=== PATIENT | female | born 1965 | race Caucasian/White ===

== ENCOUNTER 2016-03-22 08:59 | Day surgery (SDC) | payer MEDICAID ==
[2016-03-20 16:05] VITALS: BMI 20.5
[~2016-03-22 08:59] MED LIST: LACTATED RINGERS 1,000 ML IV SCH
[2016-03-22 09:15] VITALS: RESP 16; TEMP 98.7
[2016-03-22] MEDS ORDERED: LIDOCAINE 1% 20 ML VIAL (10MG/ML) FOR IV START INTRADERMA ONE (09:19)
[2016-03-22] MEDS ORDERED: fentaNYL (PF) 50 MCG/ML 2 ML AMP ONE (10:00)
[2016-03-22] MEDS ORDERED: MIDAZOLAM 2 MG/2 ML VIAL ONE (10:00)
[2016-03-22] MEDS ORDERED: IOHEXOL 180 MG/ML 1 ML ML ONE (10:00)
[2016-03-22] MEDS ORDERED: TRIAMCINOLONE ACETONIDE 40 MG/ML 1 ML VIAL ONE (10:00)
--- NOTE | 2016-03-22 10:27 | P.PCN ---
Date of Procedure: 03/22/16 Procedure(s) Performed: PREOP DIAGNOSIS: 1- Lumbar postlaminectomy syndrome POSTOP DIAGNOSIS:1- Lumbar postlaminectomy syndrome PROCEDURE: Caudal epidural steroid injection with epidurolysis and epidurogram under fluoroscopic guidance ANESTHESIA: Local with 1% lidocaine 3 ml ; IV sedation with Versed 2 mg and fentanyl 200 g EBL: Minimal. PROCEDURE INDICATION: The patient with post-laminectomy syndrome with low back pain and radiculopathy radiating down in both legs, here for a caudal epidural steroid injection with epidurolysis. PROCEDURE DESCRIPTION: The patient was seen and identified in the preoperative area. Risks, benefits, complications, and alternatives were discussed with the patient. The patient agreed to proceed with the procedure and signed the consent. IV was started, and vital signs were stable. Patient was taken to the OR and time out was completed. The patient was placed in the prone position on procedure table and a pillow was placed under the abdomen to reduce lumbar lordosis. The lumbosacral area was prepped and draped in the usual sterile fashion. Vital signs were closely monitored during the procedure. lateral view and the anterior-posterior plates of the sacrum were identified with infiltration of the area overlying the sacral hiatus with 1% lidocaine .A 17 gauge RK epidural needle was used to advance through the sacral hiatus into the caudal epidural space. Omnipaque 180 dye. 2cc was injected and the position of the needle was verified to be in the midline. A Racz catheter was introduced into the epidural space and was advanced towards the L5-S1 interspace under direct fluoroscopic guidance. Multiple passes were made with the catheter for lysis of epidural adhesions. Kenalog 80 mg with 3ml of preservative free Lidocaine 1% and 5 ml of preservative free normal saline was injected slowly. Additional spread was seen to L4 under fluoroscopy. The needle and the catheter were withdrawn intact. EPIDUROGRAM: Omnipaque 180 mg dye 2 ml was injected with spread of the dye into the caudal epidural space and with spread cutoff at L5 prior to epidurolysis. Post epidurolysis dye 2 ml was injected and spread was seen to L3- 4.There was further spread of the solution together with the dye above the L3 COMPLICATIONS: None. DISPOSITION / PLANS: The patient was placed in a supine position and transferred to the recovery area in a stable condition for observation and was discharged from the recovery room after meeting discharge criteria. Home discharge instructions given to the patient by the staff. The patient was reexamined prior to discharge. The patient will schedule a follow up in the clinic in 8 weeks. Patient given prescription refill for [place] 10/325 every 6 hours dispensed 120 mg refill, amitriptyline 50 mg one tablet by mouth daily at bedtime dispense 30 with one refill, and baclofen 10 mg every 8 hours dispensed 30 with one refill
[2016-03-22] MEDS ORDERED: KETOROLAC 30 MG/ML 1 ML VIAL IVP STA (10:29)
--- NOTE | 2016-03-22 10:41 | FL ---
EXAMINATION TYPE: FL guided pain mgmt statistic DATE OF EXAM: 03/22/2016 10:28 AM HISTORY: Flouroscopy time 4 seconds of fluoroscopy provided. IMPRESSION: 1. Fluoroscopy time.
[2016-03-22 10:44] VITALS: BP 122/78; PULSE 90
[2016-03-22] MEDS ORDERED: HYDROmorphone 1 MG/ML 1 ML SYRINGE IVP ONE (10:54)
[2016-03-22] MEDS ORDERED: IV FLUID CONTINUATION 1,000 ML IV ONE (11:09)
== END 2016-03-22 11:19 | disposition home or self-care (01) ==
LOC: ORPAIN 08:59
PROVIDERS: ATTEND Specialist
DX: M96.1 Postlaminectomy syndrome, not elsewhere classified (principal); Z88.5 Allergy status to narcotic agent; Z91.012 Allergy to eggs; Z91.011 Allergy to milk products
CPT/HCPCS: 62264; J2250; J3301; Q9965; J3010; J1170

== ENCOUNTER 2016-05-08 06:30 | Day surgery (SDC) | payer MEDICAID ==
[2016-05-08] MEDS ORDERED: LACTATED RINGERS 1,000 ML IV SCH (06:40)
[2016-05-08] MEDS ORDERED: LIDOCAINE 1% 20 ML VIAL (10MG/ML) FOR IV START INTRADERMA ONE (06:41)
[2016-05-08 06:45] VITALS: TEMP 98.5
[2016-05-08] MEDS ORDERED: TRIAMCINOLONE ACETONIDE 40 MG/ML 1 ML VIAL ONE (07:39)
[2016-05-08] MEDS ORDERED: IOHEXOL 180 MG/ML 1 ML ML ONE (07:39)
[2016-05-08] MEDS ORDERED: MIDAZOLAM 2 MG/2 ML VIAL ONE (07:39)
[2016-05-08] MEDS ORDERED: fentaNYL (PF) 50 MCG/ML 2 ML AMP ONE (07:39)
--- NOTE | 2016-05-08 08:04 | P.PCN ---
Date of Procedure: 05/08/16 Procedure(s) Performed: PREOP DIAGNOSIS: 1- Lumbar postlaminectomy syndrome POSTOP DIAGNOSIS:1- Lumbar postlaminectomy syndrome PROCEDURE: Caudal epidural steroid injection with epidurolysis and epidurogram under fluoroscopic guidance ANESTHESIA: Local with 1% lidocaine 3 ml ; IV sedation with Versed 2 mg and fentanyl 200 g EBL: Minimal. PROCEDURE INDICATION: The patient with post-laminectomy syndrome with low back pain and radiculopathy radiating down in both legs, here for a caudal epidural steroid injection with epidurolysis. PROCEDURE DESCRIPTION: The patient was seen and identified in the preoperative area. Risks, benefits, complications, and alternatives were discussed with the patient. The patient agreed to proceed with the procedure and signed the consent. IV was started, and vital signs were stable. Patient was taken to the OR and time out was completed. The patient was placed in the prone position on procedure table and a pillow was placed under the abdomen to reduce lumbar lordosis. The lumbosacral area was prepped and draped in the usual sterile fashion. Vital signs were closely monitored during the procedure. lateral view and the anterior-posterior plates of the sacrum were identified with infiltration of the area overlying the sacral hiatus with 1% lidocaine .A 17 gauge RK epidural needle was used to advance through the sacral hiatus into the caudal epidural space. Omnipaque 180 dye. 2cc was injected and the position of the needle was verified to be in the midline. A Racz catheter was introduced into the epidural space and was advanced towards the L5-S1 interspace under direct fluoroscopic guidance. Multiple passes were made with the catheter for lysis of epidural adhesions. Kenalog 80 mg with 3ml of preservative free Lidocaine 1% and 5 ml of preservative free normal saline was injected slowly. Additional spread was seen to L4 under fluoroscopy. The needle and the catheter were withdrawn intact. EPIDUROGRAM: Omnipaque 180 mg dye 2 ml was injected with spread of the dye into the caudal epidural space and with spread cutoff at L5 prior to epidurolysis. Post epidurolysis dye 2 ml was injected and spread was seen to L3- 4.There was further spread of the solution together with the dye above the L3 COMPLICATIONS: None. DISPOSITION / PLANS: The patient was placed in a supine position and transferred to the recovery area in a stable condition for observation and was discharged from the recovery room after meeting discharge criteria. Home discharge instructions given to the patient by the staff. The patient was reexamined prior to discharge. The patient will schedule a follow up in the clinic in 2-4 weeks. Patient also given prescription refill for [place] 10/325 one tablet by mouth every 6 hours dispense 120 and baclofen 10 mg every 8 hours when necessary dispensed 30 with 3 refills, and amitriptyline 50 mg daily at bedtime dispensed 30 with 3 refills
[2016-05-08] MEDS ORDERED: IV FLUID CONTINUATION 1,000 ML IV ONE (08:10)
[2016-05-08 08:12] VITALS: RESP 18
[2016-05-08 08:28] VITALS: BP 135/76; PULSE 83
--- NOTE | 2016-05-08 09:23 | FL ---
EXAMINATION TYPE: FL guided pain mgmt statistic DATE OF EXAM: 05/08/2016 8:08 AM HISTORY: Flouroscopy time 5 seconds of fluoroscopy provided. IMPRESSION: 1. Fluoroscopy time.
--- NOTE | 2016-05-10 10:50 | CDI ---
Pt Name: Debbi Menchaca CONFIDENTIAL MR#: [id number] Adm Date: 05/08/2016 6:30:00 AM Printed:05/10/2016 Physician Documentation Request Page 1 of 2 ICD-10-CM Ready Physicians Documentation Request Patient: Debbi Menchaca EPI: [id number] Account: [id number] Payer: [facility] Facility: [facility] Location: - Admit Date: 05/08/2016 6:30:00 AM Query Send By: Reina Narvaez Phone #: Ext. Communication Date: 05/10/2016 10:45:00 AM Clarification Outpatient By submitting this query, we are merely seeking further clarification of documentation to accurately reflect all conditions that you are monitoring, evaluating, treating or that extend the hospitalization or utilize additional resources of care. Please utilize your independent clinical judgment when addressing the question(s) below. Dear Doctor Kathia Chaidez, The patients Clinical Indicators include: see below Documentation Clarification OP The Procedure note states "IV sedation". Please clarify the type of sedation this patient received, such as: Moderate/conscious sedation Unconscious sedation General Anesthesia Other (please specify) This information is necessary for proper coding and billing purposes. Please document your findings as an addendum. Thank you. PLEASE DOCUMENT ANY ADDITIONAL DIAGNOSES AND/OR SPECIFICITY IN THE PROGRESS NOTES AND/OR DISCHARGE SUMMARY. Agreed & documented Unable to determine/unknown Disagree with the above request Need to discuss MTDD
--- NOTE | 2016-05-13 16:35 | P.PN ---
Progress Note - Text This addendum to the procedure note dictated on 05/08/2016, the procedure done under moderate/conscious sedation
== END 2016-05-08 08:49 | disposition home or self-care (01) ==
LOC: ORPAIN 06:30
PROVIDERS: ATTEND Specialist
DX: M96.1 Postlaminectomy syndrome, not elsewhere classified (principal); Z91.012 Allergy to eggs; Z91.040 Latex allergy status; Z88.5 Allergy status to narcotic agent; Z91.018 Allergy to other foods
CPT/HCPCS: 99152; 62264; J2250; J3301; Q9965; J3010

== ENCOUNTER 2016-06-05 06:40 | Day surgery (SDC) | payer MEDICAID ==
[2016-06-05 07:02] VITALS: RESP 18; TEMP 98.4
[2016-06-05] MEDS ORDERED: LACTATED RINGERS 1,000 ML IV SCH (07:02)
[2016-06-05] MEDS ORDERED: LIDOCAINE 1% 20 ML VIAL (10MG/ML) FOR IV START INTRADERMA ONE (07:09)
[2016-06-05] MEDS ORDERED: MIDAZOLAM 2 MG/2 ML VIAL ONE (07:13)
[2016-06-05] MEDS ORDERED: IOHEXOL 180 MG/ML 1 ML ML ONE (07:13)
[2016-06-05] MEDS ORDERED: fentaNYL (PF) 50 MCG/ML 2 ML AMP ONE (07:13)
[2016-06-05] MEDS ORDERED: TRIAMCINOLONE ACETONIDE 40 MG/ML 1 ML VIAL ONE (07:13)
--- NOTE | 2016-06-05 07:35 | P.PCN ---
Date of Procedure: 06/05/16 Procedure(s) Performed: PREOP DIAGNOSIS: 1- Lumbar postlaminectomy syndrome POSTOP DIAGNOSIS:1- Lumbar postlaminectomy syndrome PROCEDURE: Caudal epidural steroid injection with epidurolysis and epidurogram under fluoroscopic guidance ANESTHESIA: Local with 1% lidocaine 3 ml ; IV sedation with Versed 3 mg and fentanyl 150 g EBL: Minimal. PROCEDURE INDICATION: The patient with post-laminectomy syndrome with low back pain and radiculopathy radiating down in both legs, here for a caudal epidural steroid injection with epidurolysis. PROCEDURE DESCRIPTION: The patient was seen and identified in the preoperative area. Risks, benefits, complications, and alternatives were discussed with the patient. The patient agreed to proceed with the procedure and signed the consent. IV was started, and vital signs were stable. Patient was taken to the OR and time out was completed. The patient was placed in the prone position on procedure table and a pillow was placed under the abdomen to reduce lumbar lordosis. The lumbosacral area was prepped and draped in the usual sterile fashion. Vital signs were closely monitored during the procedure. lateral view and the anterior-posterior plates of the sacrum were identified with infiltration of the area overlying the sacral hiatus with 1% lidocaine .A 17 gauge RK epidural needle was used to advance through the sacral hiatus into the caudal epidural space. Omnipaque 180 dye. 2cc was injected and the position of the needle was verified to be in the midline. A Racz catheter was introduced into the epidural space and was advanced towards the L5-S1 interspace under direct fluoroscopic guidance. Multiple passes were made with the catheter for lysis of epidural adhesions. Kenalog 80 mg with 3ml of preservative free Lidocaine 1% and 5 ml of preservative free normal saline was injected slowly. Additional spread was seen to L4 under fluoroscopy. The needle and the catheter were withdrawn intact. EPIDUROGRAM: Omnipaque 180 mg dye 2 ml was injected with spread of the dye into the caudal epidural space and with spread cutoff at L5 prior to epidurolysis. Post epidurolysis dye 2 ml was injected and spread was seen to L4.There was further spread of the solution together with the dye above the L4 COMPLICATIONS: None. DISPOSITION / PLANS: The patient was placed in a supine position and transferred to the recovery area in a stable condition for observation and was discharged from the recovery room after meeting discharge criteria. Home discharge instructions given to the patient by the staff. The patient was reexamined prior to discharge. The patient will schedule a follow up in the clinic in 4-6 weeks.
[2016-06-05] MEDS ORDERED: HYDROmorphone 1 MG/ML 1 ML SYRINGE IVP ONE ×2 (08:30→08:32)
--- NOTE | 2016-06-05 08:39 | FL ---
EXAMINATION TYPE: FL guided pain mgmt statistic DATE OF EXAM: 06/05/2016 7:42 AM HISTORY: Flouroscopy time 4 seconds of fluoroscopy provided. IMPRESSION: 1. Fluoroscopy time.
[2016-06-05 08:41] VITALS: BP 108/63; PULSE 90
[2016-06-05] MEDS ORDERED: IV FLUID CONTINUATION 1,000 ML IV ONE (08:43)
== END 2016-06-05 09:06 | disposition home or self-care (01) ==
LOC: ORPAIN 06:40
PROVIDERS: ATTEND Specialist
DX: M96.1 Postlaminectomy syndrome, not elsewhere classified (principal); M54.16 Radiculopathy, lumbar region; F41.9 Anxiety disorder, unspecified; F31.9 Bipolar disorder, unspecified; K21.9 Gastro-esophageal reflux disease without esophagitis; Z88.5 Allergy status to narcotic agent; Z91.011 Allergy to milk products; Z91.012 Allergy to eggs; Z88.8 Allergy status to other drugs, medicaments and biological substances
CPT/HCPCS: 62264; 99152; J2250; J3301; Q9965; J3010; J1170

== ENCOUNTER → 2016-07-31 | Outpatient (CLI) | payer MEDICAID ==
[2016-07-31 12:12] VITALS: BP 155/75; PULSE 102; RESP 18; TEMP 98.8
--- NOTE | 2016-07-31 12:29 | P.PN ---
Progress Note - Text Patient returns for followup for chronic back pain with radiation to RLE down to toes, s/p four back surgeries. Patient recently underwent caudal RAYNA with lysis x3 with relief for 4-6 weeks from each. Patient continues on [place], Elavil, and baclofen medications for pain with good relief. Patient denies adverse drug effects from medications. Today, pt denies new-onset weakness, bowel/bladder incontinence, or any other signs or symptoms of cauda equina syndrome. There are no signs of acute intoxication, and no indications of medication diversion or overuse. In addition to above, 13-point review of systems is also negative for chest pain , shortness of breath, changes in vision, changes in hearing, new onset weakness , abdominal pain, diarrhea, extreme fatigue, malaise, fever, skin changes, homicidal or suicidal ideation, or bowel or bladder incontinence. Vital Signs: Reviewed in EMR Gen: WDWN, AAOx3, NAD HEENT: NCAT, EOMI, hearing grossly normal Pulm: resp unlabored Abd: soft, NT, ND Neck: supple, trachea midline ROM in flexion lumbar spine: reduced ROM in extension lumbar spine: reduced Lumbar paravertebral tenderness: ++ Facet loading: ++ SI joint tenderness: + R side > L side Carlos's test: + R side >> L side Straight leg raise: ++ R side at 20 degrees Lower extremity: decreased strength due to pain Neuro: CN II-XII grossly intact, muscle strength lower extremities PRESERVED Imaging: Reviewed in EMR Assessment: 1. PLPS lumbar 2. lumbar radiculopathy 3. sacroiliitis Plan: 1. Explanation: Opioid and psychological risk scores were reviewed. Diagnoses , prognoses, and multiple treatment options including but not limited to physical therapy, interventional therapies, adjuvant medical therapies, narcotic medication therapies, and surgery were discussed with the patient and all questions were answered to the patient's satisfaction. 2. Opioid agreement: Patient has previously signed narcotic agreement, and was orally counseled to not overuse, abuse, divert, or cell medications, and to take them as prescribed by only 1 healthcare provider. The patient was also counseled to store opioid medications in a safe and preferably locked location. Patient was also counseled against driving while using narcotic medications and also to not use alcohol or any illicit or recreational drugs. The patient verbalized understanding that lack of compliance with any of the above and likely result in failure to renew narcotic prescriptions, possible discharge from the clinic, and possible legal ramifications thereafter if indicated. 3. Counseling: The patient was counseled extensively on SMOKING CESSATION, BODY MASS INDEX, EXERCISE. Specifically, the patient was instructed regarding the importance of smoking cessation, obesity, and exercise in the context of both chronic pain and overall health. 4. Procedures: repeat caudal RAYNA with epidurolysis in 6 weeks 5. Consultations: None 6. Investigations: None 7. Medications: [place] 10/325 decreased to #105 for next month, then #90 the month after (told patient we will likely keep her at #90 dose after) 8. Disposition: f/u for procedure as scheduled PQRS measures: 1-Patient's medications are documented in the chart. 2-Tobacco use is positive, counseling given 3-Patient has not had a pneumococcal vaccine. 4-Advanced care planning discussed, patient unable to give. 5-Opioid contract signed with the patient. 6-Pain positive, follow-up visit or procedure scheduled 7-Patient's blood pressure measured and documented, and patient will follow up with the primary care due to hypertension. 8-Patient's weight was measured, and body mass index within normal limits. 9-Patient WAS NOT identified as an unhealthy alcohol user.
== END ==
LOC: PNWHC3 11:52
PROVIDERS: ATTEND Anesthesiology
DX: M54.16 Radiculopathy, lumbar region (principal); M46.1 Sacroiliitis, not elsewhere classified; G97.1 Other reaction to spinal and lumbar puncture; Z79.891 Long term (current) use of opiate analgesic
CPT/HCPCS: 99211

== ENCOUNTER 2016-09-11 08:04 | Day surgery (SDC) | payer MEDICAID ==
[2016-09-05 15:38] VITALS: BMI 18.8
[2016-09-11 08:24] VITALS: RESP 16; TEMP 98.2
[2016-09-11] MEDS ORDERED: LACTATED RINGERS 1,000 ML IV ONE (08:24)
[2016-09-11] MEDS ORDERED: LIDOCAINE 1% 20 ML VIAL (10MG/ML) FOR IV START INTRADERMA ONE (08:24)
[2016-09-11] MEDS ORDERED: LACTATED RINGERS 1,000 ML IV SCH (08:45)
[2016-09-11] MEDS ORDERED: IV FLUID CONTINUATION 1,000 ML IV ONE (09:25)
--- NOTE | 2016-09-11 09:30 | FL ---
EXAMINATION TYPE: FL guided pain mgmt statistic DATE OF EXAM: 09/11/2016 HISTORY: Pain caudal epi w/lysis. Dr. Garcia. 15 sec fluoro. 4 images saved.
[2016-09-11] MEDS ORDERED: KETOROLAC 30 MG/ML 1 ML VIAL IVP ONE (09:33)
[2016-09-11] MEDS ORDERED: HYDROmorphone 1 MG/ML 1 ML SYRINGE IVP STA (09:52)
[2016-09-11] MEDS ORDERED: HYDROmorphone 1 MG/ML 1 ML SYRINGE IVP ONE (09:53)
[2016-09-11 10:08] VITALS: BP 102/66; PULSE 74
--- NOTE | 2016-09-11 10:21 | P.PCN ---
Date of Procedure: 09/11/16 Preoperative Diagnosis: Postoperative Diagnosis: Procedure(s) Performed: Implants: Surgeon: Dayne Garcia Pathology: none sent Condition: stable Disposition: PACU Indications for Procedure: Operative Findings: Description of Procedure: PREOP DIAGNOSIS: Lumbar postlaminectomy syndrome POSTOP DIAGNOSIS: Lumbar postlaminectomy syndrome PROCEDURE: Caudal epidural steroid injection with epidurolysis and epidurogram under fluoroscopic guidance ANESTHESIA: Local with 1% lidocaine; IV sedation EBL: Minimal. PROCEDURE INDICATION: This is a 50-year-old patient with lumbar post- laminectomy syndrome with low back pain and radiculopathy radiating down her right leg, here for a caudal epidural steroid injection with epidurolysis. Patient does not take any blood thinning medications. PROCEDURE DESCRIPTION: The patient was seen and identified in the preoperative area. Risks, benefits, complications, and alternatives were discussed with the patient (including but not limited to incomplete pain relief, bleeding, infection, nerve damage, and allergies to medications), the patient agreed to proceed with the procedure and signed the consent after all questions were answered. Patient was taken to the OR and time out was completed to verify proper patient , position, laterality of pain, and allergies. Pt was placed in the prone position and a pillow was placed under the abdomen to reduce lumbar lordosis. The lumbosacral area was prepped and draped in the usual sterile fashion. Critical pause was taken. Vital signs were closely monitored during the procedure. Fluoroscopic camera was placed in the lateral view and the anterior-posterior plates of the sacrum were identified with infiltration of the area overlying the sacral hiatus with 1% lidocaine .A 16 gauge RK epidural needle was used to advance through the sacral hiatus into the caudal epidural space. Omnipaque 300 dye 2cc was injected and the position of the needle was verified to be in the midline. A Racz catheter was introduced into the epidural space and was advanced towards the L5-S1 interspace on the right side (area of greater pain) under direct fluoroscopic guidance. Multiple passes were made with the catheter for lysis of epidural adhesions. Decadron 20 with 4ml of preservative free Lidocaine 1% and 5 ml of preservative free normal saline was injected slowly. Additional spread was seen to top of L5 and up to L4 under fluoroscopy. The needle and the catheter were withdrawn intact. EPIDUROGRAM: Omnipaque 300 dye 2 ml was injected with spread of the dye into the caudal epidural space and with spread cutoff at S1 prior to epidurolysis. Post epidurolysis dye 2 ml was injected and spread was seen to L5. There was further spread of the solution together with the dye above the L5 level. COMPLICATIONS: None. DISPOSITION / PLANS: The patient was placed in a supine position and transferred to the recovery area in a stable condition for observation and was discharged from the recovery room after meeting discharge criteria. Home discharge instructions given to the patient by the staff. The patient was reexamined prior to discharge and she did not have any weakness. The patient will schedule a follow up in the clinic in 4-6 weeks.
== END 2016-09-11 10:11 | disposition home or self-care (01) ==
LOC: ORPAIN 08:04
PROVIDERS: ATTEND Anesthesiology
DX: G89.29 Other chronic pain (principal); G96.12 Meningeal adhesions (cerebral) (spinal); M96.1 Postlaminectomy syndrome, not elsewhere classified; M54.16 Radiculopathy, lumbar region; Z79.891 Long term (current) use of opiate analgesic; Z79.899 Other long term (current) drug therapy; Z88.5 Allergy status to narcotic agent; Z88.6 Allergy status to analgesic agent; Z91.012 Allergy to eggs; Z91.040 Latex allergy status; Z91.011 Allergy to milk products
CPT/HCPCS: 62264; J2250; J1100; Q9965; J3010; J1885; J1170; C1894; 62323; 99152

== ENCOUNTER 2016-10-05 06:22 | Day surgery (SDC) | payer MEDICAID ==
[2016-10-05 06:51] VITALS: TEMP 98.3
[2016-10-05] MEDS ORDERED: LACTATED RINGERS 1,000 ML IV ONE (06:51)
[2016-10-05] MEDS ORDERED: LIDOCAINE 1% 20 ML VIAL (10MG/ML) FOR IV START INTRADERMA ONE (06:54)
[2016-10-05] MEDS ORDERED: LACTATED RINGERS 1,000 ML IV SCH (07:15)
[2016-10-05] MEDS ORDERED: IV FLUID CONTINUATION 1,000 ML IV ONE (07:24)
[2016-10-05] MEDS ORDERED: KETOROLAC 30 MG/ML 1 ML VIAL IVP STA (07:30)
[2016-10-05 07:33] VITALS: RESP 16
[2016-10-05] MEDS ORDERED: HYDROmorphone 1 MG/ML 1 ML SYRINGE IVP STA (08:09)
[2016-10-05 08:13] VITALS: BP 158/97; PULSE 71
--- NOTE | 2016-10-05 09:06 | FL ---
EXAMINATION TYPE: FL guided pain mgmt statistic DATE OF EXAM: 10/05/2016 HISTORY: Flouroscopy time 11 seconds of fluoroscopy provided. IMPRESSION: 1. Fluoroscopy time.
--- NOTE | 2016-10-05 09:34 | P.PCN ---
Date of Procedure: 10/05/16 Preoperative Diagnosis: Postoperative Diagnosis: Procedure(s) Performed: Implants: Surgeon: Dayne Garcia Pathology: none sent Condition: stable Disposition: PACU Indications for Procedure: Operative Findings: Description of Procedure: PREOP DIAGNOSIS: Lumbar postlaminectomy syndrome POSTOP DIAGNOSIS: Lumbar postlaminectomy syndrome PROCEDURE: Caudal epidural steroid injection with epidurolysis and epidurogram under fluoroscopic guidance ANESTHESIA: Local with 1% lidocaine; IV sedation EBL: Minimal. PROCEDURE INDICATION: This is a 51-year-old patient with lumbar post- laminectomy syndrome with low back pain and radiculopathy radiating down her right leg, here for a caudal epidural steroid injection with epidurolysis, #3 in series. Patient does not take any blood thinning medications. PROCEDURE DESCRIPTION: The patient was seen and identified in the preoperative area. Risks, benefits, complications, and alternatives were discussed with the patient (including but not limited to incomplete pain relief, bleeding, infection, nerve damage, and allergies to medications), the patient agreed to proceed with the procedure and signed the consent after all questions were answered. Patient was taken to the OR and time out was completed to verify proper patient , position, laterality of pain, and allergies. Pt was placed in the prone position and a pillow was placed under the abdomen to reduce lumbar lordosis. The lumbosacral area was prepped and draped in the usual sterile fashion. Critical pause was taken. Vital signs were closely monitored during the procedure. Fluoroscopic camera was placed in the lateral view and the anterior-posterior plates of the sacrum were identified with infiltration of the area overlying the sacral hiatus with 1% lidocaine .A 16 gauge RK epidural needle was used to advance through the sacral hiatus into the caudal epidural space. Omnipaque 300 dye 2cc was injected and the position of the needle was verified to be in the midline. A Racz catheter was introduced into the epidural space and was advanced towards the L5-S1 interspace on the right side (area of greater pain) under direct fluoroscopic guidance. Multiple passes were made with the catheter for lysis of epidural adhesions. Decadron 20mg with 4ml of preservative free Lidocaine 1% and 5 ml of preservative free normal saline was injected slowly. Additional spread was seen to top of L3 under fluoroscopy. The needle and the catheter were withdrawn intact. EPIDUROGRAM: Omnipaque 300 dye 2 ml was injected with spread of the dye into the caudal epidural space and with spread cutoff at L5 prior to epidurolysis. Post epidurolysis dye 2 ml was injected and spread was seen to L3. There was further spread of the solution together with the dye above the L3 level. COMPLICATIONS: None. DISPOSITION / PLANS: The patient was placed in a supine position and transferred to the recovery area in a stable condition for observation and was discharged from the recovery room after meeting discharge criteria. Home discharge instructions given to the patient by the staff. The patient was reexamined prior to discharge and she did not have any weakness. The patient will schedule a follow up in the clinic in 4-6 weeks.
== END 2016-10-05 08:59 | disposition home or self-care (01) ==
LOC: ORPAIN 06:22
PROVIDERS: ATTEND Anesthesiology
DX: M96.1 Postlaminectomy syndrome, not elsewhere classified (principal)
CPT/HCPCS: 62264; 99152; J2250; J1100; Q9965; J3010; J1885; J1170

== ENCOUNTER → 2016-11-20 | Outpatient (CLI) | payer MEDICAID ==
[2016-11-20 12:54] VITALS: BP 116/76; PULSE 83; RESP 18
--- NOTE | 2016-11-20 13:14 | P.PN ---
Progress Note - Text Patient returns for followup for chronic back pain with radiation to RLE down to toes, s/p four back surgeries. Patient recently underwent caudal RAYNA with lysis x3 with relief for 4-6 weeks from each and significant improvement in R leg and toe pain, and patient still has had pain in right buttock. Patient continues on [place], Elavil, and baclofen medications for pain with good relief. Patient denies adverse drug effects from medications. Today, pt denies new- onset weakness, bowel/bladder incontinence, or any other signs or symptoms of cauda equina syndrome. There are no signs of acute intoxication, and no indications of medication diversion or overuse. In addition to above, 13-point review of systems is also negative for chest pain , shortness of breath, changes in vision, changes in hearing, new onset weakness , abdominal pain, diarrhea, extreme fatigue, malaise, fever, skin changes, homicidal or suicidal ideation, or bowel or bladder incontinence. Vital Signs: Reviewed in EMR Gen: WDWN, AAOx3, NAD HEENT: NCAT, EOMI, hearing grossly normal Pulm: resp unlabored Abd: soft, NT, ND Neck: supple, trachea midline ROM in flexion lumbar spine: reduced ROM in extension lumbar spine: reduced Lumbar paravertebral tenderness: ++ Facet loading: ++ SI joint tenderness: ++ R side > L side Carlos's test: + R side >> L side Straight leg raise: neg Lower extremity: decreased strength due to pain Neuro: CN II-XII grossly intact, muscle strength lower extremities PRESERVED Imaging: Reviewed in EMR Assessment: 1. PLPS lumbar 2. lumbar radiculopathy 3. sacroiliitis Plan: 1. Explanation: Opioid and psychological risk scores were reviewed. Diagnoses , prognoses, and multiple treatment options including but not limited to physical therapy, interventional therapies, adjuvant medical therapies, narcotic medication therapies, and surgery were discussed with the patient and all questions were answered to the patient's satisfaction. 2. Opioid agreement: Patient has previously signed narcotic agreement, and was orally counseled to not overuse, abuse, divert, or cell medications, and to take them as prescribed by only 1 healthcare provider. The patient was also counseled to store opioid medications in a safe and preferably locked location. Patient was also counseled against driving while using narcotic medications and also to not use alcohol or any illicit or recreational drugs. The patient verbalized understanding that lack of compliance with any of the above and likely result in failure to renew narcotic prescriptions, possible discharge from the clinic, and possible legal ramifications thereafter if indicated. 3. Counseling: The patient was counseled extensively on SMOKING CESSATION, BODY MASS INDEX, EXERCISE. Specifically, the patient was instructed regarding the importance of smoking cessation, obesity, and exercise in the context of both chronic pain and overall health. 4. Procedures: R SIJ injection 5. Consultations: None 6. Investigations: UDS today 7. Medications: [place] 10/325 #90 with one refill 8. Disposition: f/u for procedure as scheduled PQRS measures: 1-Patient's medications are documented in the chart. 2-Tobacco use is positive, counseling given 3-Patient has not had a pneumococcal vaccine. 4-Advanced care planning discussed, patient unable to give. 5-Opioid contract signed with the patient. 6-Pain positive, follow-up visit or procedure scheduled 7-Patient's blood pressure measured and documented, and patient will follow up with the primary care due to hypertension. 8-Patient's weight was measured, and body mass index within normal limits. 9-Patient WAS NOT identified as an unhealthy alcohol user.
== END | disposition home or self-care (01) ==
LOC: PNWHC3 12:34
PROVIDERS: ATTEND Anesthesiology
DX: M54.16 Radiculopathy, lumbar region (principal); M46.1 Sacroiliitis, not elsewhere classified; G97.1 Other reaction to spinal and lumbar puncture
CPT/HCPCS: 80356; 99211

== ENCOUNTER 2016-12-11 08:02 | Day surgery (SDC) | payer MEDICAID ==
[2016-12-11 07:10] VITALS: RESP 16; TEMP 98
--- NOTE | 2016-12-11 07:32 | P.PCN ---
Date of Procedure: 12/11/16 Surgeon: Dayne Garcia Pathology: none sent Condition: stable Disposition: PACU Description of Procedure: PREOPERATIVE DIAGNOSIS: 1-Bilateral sacroiliitis. 2 Lumbar DDD POSTOPERATIVE DIAGNOSIS:. 1-Bilateral sacroiliitis. 2 Lumbar DDD PROCEDURES: Right Sacroiliac joint steroid injection with fluoroscopic guidance ANESTHESIA: Local with 1% lidocaine; conscious sedation EBL: Minimal. PROCEDURE INDICATIONS: This patient with a history of low back pain secondary to sacroiliitis and lumbar DDD unresponsive to conservative management. No use of blood thinners. PROCEDURE DESCRIPTION: The patient was seen and identified in the preoperative area. Risks, benefits, complications, and alternatives were discussed with the patient (including but not limited to incomplete pain relief, bleeding, infection, nerve damage, and allergies to medications), the patient agreed to proceed with the procedure and signed the consent after all questions were answered. Patient was taken to the OR and time out was completed to verify proper patient , position, laterality of pain, and allergies. Pt was placed in the prone position and a pillow was placed under the abdomen to reduce lumbar lordosis. The lumbosacral area was prepped and draped in the usual sterile fashion. Critical pause was taken. Vital signs were closely monitored during the procedure. The fluoroscopic camera was placed in contralateral oblique view and right sacroiliiac joint lower pole was identified. After local infiltration with 1% lidocaine 2 ml, Subsequently, a 22-gauge 3.5 inch spinal needle was introduced into the posteroinferior aspect of the right sacroiliac joint under direct fluoroscopic visualization. Subsequently, 4 ml of a solution of a total of 4 ml solution containing total 3 mL of 0.5% preservative-free bupivicaine mixed with 40 mg of Kenalog was injected after negative aspiration for CSF, blood, and air and negative for paresthesia. Needle was withdrawn intact. Skin was cleansed, and bandages were applied. COMPLICATIONS: None. COMMENTS: DISPOSITION / PLANS: The patient was placed in a supine position and transferred to the recovery area in a stable condition for observation and was discharged from the recovery room after meeting discharge criteria. Home discharge instructions given to the patient by the staff. The patient was reexamined prior to discharge. The patient will schedule a follow up in clinic in 4-6 weeks.
[2016-12-11 07:59] VITALS: BP 124/75; PULSE 65
[~2016-12-11 08:02] MED LIST changes: +IV FLUID CONTINUATION 1,000 ML IV ONE; +LIDOCAINE 1% 20 ML VIAL (10MG/ML) FOR IV START INTRADERMA ONE
--- NOTE | 2016-12-11 08:38 | FL ---
EXAMINATION TYPE: FL guided pain mgmt statistic DATE OF EXAM: 12/11/2016 HISTORY: Flouroscopy time 18 seconds of fluoroscopy provided. IMPRESSION: 1. Fluoroscopy time.
== END 2016-12-11 08:18 | disposition home or self-care (01) ==
LOC: ORPAIN 08:02
PROVIDERS: ATTEND Anesthesiology
DX: G89.29 Other chronic pain (principal); M46.1 Sacroiliitis, not elsewhere classified; M51.16 Intervertebral disc disorders with radiculopathy, lumbar region; Z79.891 Long term (current) use of opiate analgesic; Z79.899 Other long term (current) drug therapy; M96.1 Postlaminectomy syndrome, not elsewhere classified; Z88.5 Allergy status to narcotic agent; Z91.040 Latex allergy status; F17.200 Nicotine dependence, unspecified, uncomplicated
CPT/HCPCS: 99152; 27096; J2250; J1100; J3010

== ENCOUNTER → 2017-01-15 | Outpatient (CLI) | payer MEDICAID ==
[2017-01-15 12:29] VITALS: BP 134/89; PULSE 91; RESP 16; TEMP 99.4
--- NOTE | 2017-01-15 13:15 | P.PN ---
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 The patient had caudal epidural steroid injection and lately she had left sacroiliac joint steroid injection. The last injection increases her pain slightly however few days after the injection her pain gets better. Her pain is stable at this point. She takes [place] and baclofen for her pain. She works full-time in a factory. She still smokes half a pack of cigarettes a day. She denies any suicidal thoughts and she does not show any drug-seeking behavior at this point. By physical exam she is alert oriented 3 in no apparent distress with no changes in her neurologic exam since last visit. PQRS measures: 1-Patient's medications are documented in the chart. 2-Tobacco use is positive, counseling given 3-Patient has not had a pneumococcal vaccine. 4-Advanced care planning discussed, patient unable to give 5-Opioid contract signed with the patient. 6-Pain positive, follow-up visit or procedure scheduled 7-Patient's blood pressure measured and documented within normal limits. 8-Patient's weight was measured, and body mass index ABOVE the normal limits, and counseling was done. Patient instructed to follow up with PCP. 9-Patient WAS NOT identified as an unhealthy alcohol user.
== END | disposition home or self-care (01) ==
LOC: PNWHC3 12:07
PROVIDERS: ATTEND Anesthesiology
DX: M54.6 Pain in thoracic spine (principal)
CPT/HCPCS: 99211

== ENCOUNTER → 2017-03-12 | Outpatient (CLI) | payer MEDICAID ==
--- NOTE | 2017-03-12 13:11 | P.PN ---
Subjective Progress Note Date: 03/12/17 This is follow-up visit for this patient with a history of severe and chronic low back pain secondary to failed back surgery syndrome lumbar area , and sacroiliitis ,we have done interventional pain management injection,: Epidural steroid injection with lysis of epidural adhesions and we have done sacroiliac joint steroid injection patient had currently complaining of severe low back pain with radiation to the right lower extremity associated with numbness and burning sensation Patients currently on baclofen 10 mg 3 times a day and [place] 10/325 every 6 hours Patient denies any side effects of the medication, denies excessive drowsiness or sleepiness, denies suicidal ideation, and reports that the current pain medication is NOT helping To control the pain and improve activity of daily living Patient denies any motor or sensory deficit , patient denies any fever or night sweats, denies any change in the bowel movements or urination Physical Examinations : 1-Constitutiona : Cooperative , not in acute distress . 2-HEENT : nech ; supple , no Lymphadenopathy , no Thyromegaly , normal thyroid size . eyes : no ptosis , no icterus, no photophobia . ENT : normal of hearing , normal oropharynx , no Thrush . 3- Respiratory : Chest clear to auscultations Bilaterally , no wheezing , no Rhonchi . 4- Cardiovascular : regular rate and rhythem , S1 , S2 , no S3 , no S4. 5- Gastrointestinal : abdomen soft no tenderness , bowel sounds positive all four quadrents , no organomegally . 6- Genitourinary : Defferred . 7- neurologic : Cranial nerve II to XII intact , no focal neurological deffecit . 8-psychatric : alert , oriented X 3 , appropriate affect , intact judgment and insight . 9-Lymphatic : no Lymphadenopathy . 10- musculoskeltal : exams of the Lumber spine = motor strength lower extremities ,thigh and legs .5/5 deep tendon reflexes : normal Knee Jerk , normal ankle Jerk . lumber facet Loading Test positive strait leg raising test positive at 30 degree , RT ,LT , Fabere test positive RT and positive LT . Range of motion: Range of motion in flexion of the lumbar spine 30 degrees Range of motion range of motion of extension of the lumbar spine 10 Assessment and plan = Chronic low back pain secondary to lumbar failed back surgery syndrome chronic and current use of high-risk medication (Opioids). The patient was counseled about risk of opioid use, psychological risk associated with opioids and was orally counseled to not overuse , divert,or sell dictations to take medications as prescribed only , and to restore medication in safe location , and the patient counseled against driving while using narcotic medications, and also not to use alcohol or any illicit recreational drugs, the patient's verbalized understanding that the lack of compliance will result in failure to renew narcotic prescription and possible discharge from the clinic - diagnoses, prognosis, and treatment options including but not limited to physical therapy, surgical interventions, interventional therapies , and medication management including narcotics and adjuvant medication were discussed with the patient and all the questions answered Prescription refill for [place] 10/325 every 6 hours dispensed 90 with 1 refill given today, and baclofen 10 mg 3 times a day dispense 90 with 1 refill and patient given prescription for MRI of the lumbar spine to evaluate, if there is any new pathology , causing increased of her low back pain Objective - Vital Signs Vital signs: Intake & Output 03/11/17 03/12/17 03/12/17 18:59 06:59 18:59 Weight 52.163 kg
[2017-03-12 14:41] VITALS: BP 159/90; PULSE 72; RESP 18
== END | disposition home or self-care (01) ==
LOC: PNWHC3 12:12
PROVIDERS: ATTEND Specialist
DX: G89.29 Other chronic pain (principal); M54.5 Low back pain; M96.1 Postlaminectomy syndrome, not elsewhere classified; M46.1 Sacroiliitis, not elsewhere classified; Z79.52 Long term (current) use of systemic steroids; Z79.891 Long term (current) use of opiate analgesic; Z79.899 Other long term (current) drug therapy
CPT/HCPCS: 99211

== ENCOUNTER → 2017-05-07 | Outpatient (CLI) | payer MEDICAID ==
--- NOTE | 2017-05-07 13:49 | P.PN ---
Progress Note - Text Progress Note Date: 05/07/17 This is a 52-year-old female with history of lumbar postlaminectomy pain syndrome and pain in the right side of her back with radiation to the right foot with occasional numbness and tingling. She denies any bowel or bladder dysfunction she also denies any constant weakness in the lower extremities. Her pain is controlled by oral medications and interventional pain procedures she had caudal epidural steroid injection and sacroiliac joint steroid injection previously. Today she has significant tenderness around the right sacroiliac joint. Neuro exam of the lower extremities showed symmetrical muscle strength and deep tendon reflexes. Straight leg raising test negative bilaterally. The patient denies any side effects to her medication and she does not show any drug-seeking behavior. I will schedule the patient to have right sacroiliac joint steroid injection and if she gets good results then we can plan on doing the right sacral joint RFA. I'll give her prescription for [place] 10 mg 3 times a day to be filled on May 28.
== END | disposition home or self-care (01) ==
LOC: PNWHC3 12:20
PROVIDERS: ATTEND Anesthesiology
DX: M96.1 Postlaminectomy syndrome, not elsewhere classified (principal); M54.9 Dorsalgia, unspecified
CPT/HCPCS: 99211

== ENCOUNTER 2017-06-06 07:29 | Day surgery (SDC) | payer MEDICAID ==
[2017-06-01 15:19] VITALS: BMI 20.2
[2017-06-06] MEDS ORDERED: LACTATED RINGERS 1,000 ML IV ONE (08:30)
[2017-06-06 09:04] VITALS: RESP 16; TEMP 98.1
[2017-06-06] MEDS ORDERED: LIDOCAINE 1% 20 ML VIAL (10MG/ML) FOR IV START INTRADERMA ONE (09:05)
--- NOTE | 2017-06-06 09:18 | P.PCN ---
Date of Procedure: 06/06/17 Surgeon: Dayne Garcia Pathology: none sent Condition: stable Disposition: PACU Description of Procedure: PREOPERATIVE DIAGNOSIS: 1-Bilateral sacroiliitis. 2 Lumbar DDD POSTOPERATIVE DIAGNOSIS:. 1-Bilateral sacroiliitis. 2 Lumbar DDD PROCEDURES: Right Sacroiliac joint steroid injection with fluoroscopic guidance ANESTHESIA: Local with 1% lidocaine; conscious sedation EBL: Minimal. PROCEDURE INDICATIONS: This patient with a history of low back pain secondary to sacroiliitis and lumbar DDD unresponsive to conservative management. No use of blood thinners. PROCEDURE DESCRIPTION: The patient was seen and identified in the preoperative area. Risks, benefits, complications, and alternatives were discussed with the patient (including but not limited to incomplete pain relief, bleeding, infection, nerve damage, and allergies to medications), the patient agreed to proceed with the procedure and signed the consent after all questions were answered. Patient was taken to the OR and time out was completed to verify proper patient , position, laterality of pain, and allergies. Pt was placed in the prone position and a pillow was placed under the abdomen to reduce lumbar lordosis. The lumbosacral area was prepped and draped in the usual sterile fashion. Critical pause was taken. Vital signs were closely monitored during the procedure. The fluoroscopic camera was placed in contralateral oblique view and right sacroiliiac joint lower pole was identified. After local infiltration with 1% lidocaine 2 ml, Subsequently, a 22-gauge 3.5 inch spinal needle was introduced into the posteroinferior aspect of the right sacroiliac joint under direct fluoroscopic visualization. Subsequently, 4 ml of a solution of a total of 4 ml solution containing total 3 mL of 0.5% preservative-free bupivacaine mixed with 40 mg of Kenalog was injected after negative aspiration for CSF, blood, and air and negative for paresthesia. The entire procedure was repeated on the left side as above. Needle was withdrawn intact. Skin was cleansed, and bandages were applied. COMPLICATIONS: None. COMMENTS: DISPOSITION / PLANS: The patient was placed in a supine position and transferred to the recovery area in a stable condition for observation and was discharged from the recovery room after meeting discharge criteria. Home discharge instructions given to the patient by the staff. The patient was reexamined prior to discharge. The patient will schedule a clinic visit in 4-6 weeks.
[2017-06-06] MEDS ORDERED: KETOROLAC 30 MG/ML 1 ML VIAL IVP ONE ×2 (09:40→09:58)
[2017-06-06] MEDS ORDERED: IV FLUID CONTINUATION 1,000 ML IV ONE (09:43)
[2017-06-06 10:17] VITALS: BP 135/85; PULSE 70
--- NOTE | 2017-06-06 12:42 | FL ---
Fluoroscopy HISTORY: Pain 3 seconds fluoroscopy time supplied to the referring clinician. 2 intraoperative C-arm images docume nt the procedure. See dictated report from anesthesia.
== END 2017-06-06 10:29 | disposition home or self-care (01) ==
LOC: ORPAIN 07:29
PROVIDERS: ATTEND Anesthesiology
DX: M46.1 Sacroiliitis, not elsewhere classified (principal); M51.36 Other intervertebral disc degeneration, lumbar region; Z88.5 Allergy status to narcotic agent; Z91.040 Latex allergy status; Z91.011 Allergy to milk products
CPT/HCPCS: 27096; J2250; J3301; J1885; Q9966

== ENCOUNTER → 2017-06-18 | Outpatient (CLI) | payer MEDICAID ==
[2017-06-18 13:45] VITALS: BP 137/89; PULSE 88; RESP 16
--- NOTE | 2017-06-18 14:07 | P.PN ---
Subjective Progress Note Date: 06/18/17 This is follow-up visit for this patient with a history of severe and chronic low back pain secondary to lumbar postlaminectomy pain syndrome, and sacroiliitis, we have done a caudal epidural steroid injection with lysis of epidural adhesions , she had no benefit from it , and recently we have done right side sacroiliac joint steroid injection , she reported that her pain improved significantly after the right side , sacroiliac joint steroid injection , she continued to work patient currently on [place] 10/325 every 6 hours , she uses Xanax 1 mg when necessary for severe anxiety , and amitriptyline 50 mg daily at bedtime for depression Patient denies any side effects of the medication, denies excessive drowsiness or sleepiness, denies suicidal ideation, and reports that the current pain medication is helping To control the pain and improve activity of daily living . Patient denies any motor or sensory deficit, denies change in bowel movement or urination, patient denies any fever or night sweats and patient here for follow-up visit and medication refill Objective - Vital Signs Vital signs: Vital Signs Temp Pulse 88 06/18/17 13:36 Resp 16 06/18/17 13:36 BP 137/89 06/18/17 13:36 Pulse Ox Intake & Output 06/17/17 06/18/17 06/18/17 18:59 06:59 18:59 Weight 52.163 kg - Exam Physical Examinations : 1-Constitutiona : Cooperative , not in acute distress . 2-HEENT : nech ; supple , no Lymphadenopathy , normal thyroid size . eyes : no ptosis , no icterus, no photophobia . ENT : normal of hearing , normal oropharynx , no Thrush . 3- Respiratory : Chest clear to auscultations Bilaterally , no wheezing , no Rhonchi . 4- Cardiovascular : regular rate and rhythem , S1 , S2 , no S3 , no S4. 5- Gastrointestinal : abdomen soft no tenderness , bowel sounds positive all four quadrents , no organomegally . 6- Genitourinary : Defferred . 7- neurologic : Cranial nerve II to XII intact , no focal neurological deffecit . 8-psychatric : alert , oriented X 3 , appropriate affect , intact judgment and insight . 9-Lymphatic : no Lymphadenopathy . 10- musculoskeltal : , Lumber spine = normal moter stegnth lower extremities ,thigh and legs .5/5 deep tendon reflexes : normal Knee Jerk , normal ankle Jerk . lumber facet Loading Test negative strait leg raising test positive at 30 degree Right , negative Left Fabere test positive Right and negative Left Sever tenderness over the Sacroiliac joint on the Right , Assessment and Plan Plan: Assessment and plan= chronic low back pain secondary to right sacroiliitis , failed back surgery syndrome and lumbar area Patient had a good result after the right-sided sacroiliac joint steroid injections chronic and current use of high-risk medication (opioids) Patient denies any side effects of the current pain medication and the current treatment/medication ML and the patient to do activity of daily living , Diagnoses, prognosis, treatment options, including but not limited to physical therapy, medication management, interventional therapies, and surgery, were discussed with the patient All the questions answered Patient signed the narcotic agreement, and he was orally counseled, not to overuse, not to abuse, not to Divert , not tp sell pain medication, and to take it as prescribed only, Patient was counseled not to drive or operate heavy equipment while using narcotic medication, and advised not to use alcohol or any Illicit drugs while using the narcotis, the patient's verbalized understanding that lack of compliance with any of the above instructions and will likely to cause discharge from the pain service, not to renew his narcotic prescriptions Medication managements= patient will be given prescription refills for [place] 10/325 every 6 hours dispense 90 with 1 refill , Discontinue baclofen , patient will continue to get prescription refill for Xanax 1 mg when necessary daily from her primary care and amitriptyline 50 mg daily at bedtime from her primary care, patient will be good candidate for repeat right-sided sacroiliac and steroid injections under fluoroscopy guidance , Time with Patient: Less than 30
== END | disposition home or self-care (01) ==
LOC: PNWHC3 13:10
PROVIDERS: ATTEND Specialist
DX: G89.29 Other chronic pain (principal); M46.1 Sacroiliitis, not elsewhere classified; M96.1 Postlaminectomy syndrome, not elsewhere classified; Z79.899 Other long term (current) drug therapy; Z79.891 Long term (current) use of opiate analgesic
CPT/HCPCS: 99211

== ENCOUNTER 2017-06-28 08:03 | Day surgery (SDC) | payer MEDICAID ==
[2017-06-28 08:50] VITALS: RESP 16; TEMP 97.1
[2017-06-28] MEDS ORDERED: LACTATED RINGERS 1,000 ML IV ONE (08:56)
--- NOTE | 2017-06-28 09:33 | P.PCN ---
Date of Procedure: 06/28/17 Surgeon: Terrance Olivera Description of Procedure: Preoperative diagnoses: right sacroilitis Postoperative diagnoses: right sacroilitis. Procedure: right sacroiliac joint steroid injection under fluoroscopic guidance. Surgeon: Terrance Olivera MD Anesthesia: IV sedation per hospital guidelines EBL: None Procedure indication: The patient had a history of severe chronic low back pain , diagnosed with sacroiliitis and lumbar sacral facet arthropathy unresponsive to conservative treatment. Procedure description: The patient was seen and identified in the preoperative holding area, risks and benefits and alternative of the procedure and possible complications discussed with the patient, and he agreed with the preceding, patient signed the consent, an IV was started, and vital signs were monitored and were stable throughout the procedure, patient was placed in the prone position or table and the lumbosacral area was prepped and draped with a sterile fashion, vital signs were closely monitored during the procedure, the fluoroscopy camera was placed in the contralateral oblique view on the right sacroiliac joint and the lower part of the joint was identified a 2 mL then a 25 -gauge Quincke-type spinal needle advanced slowly under fluoroscopy and placed in the posterior and inferior border of the right sacroiliac joint, placement confirmed with AP and lateral view, and after appropriate needle placement confirmed and after negative aspiration for heme and CSF and there was , 3 ml of Marcaine 0.5% and 40 mg of Kenalog injected after negative aspiration, no paresthesia during the injection, no resistance to injection, and the needle was removed. The entire same procedure was repeated for the left sacroiliac joint Patient tolerated the procedure well without any complication. The patient returned to supine position after the back was cleaned and a Band- Aid applied, the patient transported to recovery room in stable condition and he was monitored for 30 minutes before he was discharged home and then patient was reexamined before going home and patient was discharged in stable condition and patient will follow up with the pain clinic in a few weeks
[2017-06-28] MEDS ORDERED: LACTATED RINGERS 850 ML IV ONE (09:45)
[2017-06-28 10:04] VITALS: BP 138/69; PULSE 69
--- NOTE | 2017-06-28 10:31 | FL ---
Fluoroscopy HISTORY: Pain 3 seconds fluoroscopy time supplied to the referring clinician. 1 intraoperative C-arm images docume nt the procedure. See dictated report from anesthesia.
--- NOTE | 2017-07-01 08:43 | CDI ---
Date: 07/01/17 CDS/Truck Assembler Name: Sandy Mota Phone: If any questions, call Basilia Delgadillo Whiskey Filterer at [phone] Patient Name: Debbi Menchaca Admit Date: 06/28/17 Discharge Date: 06/28/17 ATTENTION: The [facility] Coding Staff appreciate your assistance in clarifying documentation. Please respond to the clarification below the line at the bottom and electronically sign. The [facility] Coding staff will review the response and follow-up if needed. Please note: Queries are made part of the Legal Health Record. If you have any questions, please contact the Whiskey Filterer. Dear Dr. Olivera, Please provide clarification as to what type of sedation was provided for the procedure performed. Please clarify if the sedation was moderate/conscious or unconscious sedation Operative report states IV sedation per hospital guidelines. On the Pain Procedure Record under Anesthesia Plan, nothing is checked. Thank you for your kind consideration Please check the record and see if any sedative medications were given. If so, the appropriate designation would be moderate conscious sedation. If not, I will add at the notes to indicate thatsedation was given. MTDD
== END 2017-06-28 10:21 | disposition home or self-care (01) ==
LOC: ORPAIN 08:03
PROVIDERS: ATTEND Pain Medicine Pain Medicine
DX: G89.29 Other chronic pain (principal); M46.1 Sacroiliitis, not elsewhere classified; Z88.5 Allergy status to narcotic agent; Z91.012 Allergy to eggs; Z91.040 Latex allergy status; Z91.011 Allergy to milk products
CPT/HCPCS: 27096; J2250; J1030

== ENCOUNTER → 2017-07-24 | Day surgery (SDC) | payer MEDICAID ==
[~2017-07-24] MED LIST changes: -IV FLUID CONTINUATION 1,000 ML IV ONE; +LACTATED RINGERS 1,000 ML IV ONE; -LACTATED RINGERS 1,000 ML IV SCH
[2017-07-24 08:13] VITALS: RESP 16; TEMP 97.6
--- NOTE | 2017-07-24 08:28 | P.PCN ---
Date of Procedure: 07/24/17 Surgeon: Terrance Olivera Description of Procedure: Preoperative diagnoses: right sacroilitis Postoperative diagnoses: right sacroilitis. Procedure: right sacroiliac joint steroid injection under fluoroscopic guidance. Surgeon: Terrance Olivera MD Anesthesia: IV sedation per hospital guidelines EBL: None Procedure indication: The patient had a history of severe chronic low back pain , diagnosed with sacroiliitis and lumbar sacral facet arthropathy unresponsive to conservative treatment. Procedure description: The patient was seen and identified in the preoperative holding area, risks and benefits and alternative of the procedure and possible complications discussed with the patient, and he agreed with the preceding, patient signed the consent, an IV was started, and vital signs were monitored and were stable throughout the procedure, patient was placed in the prone position or table and the lumbosacral area was prepped and draped with a sterile fashion, vital signs were closely monitored during the procedure, the fluoroscopy camera was placed in the contralateral oblique view on the right sacroiliac joint and the lower part of the joint was identified a 2 mL then a 25 -gauge Quincke-type spinal needle advanced slowly under fluoroscopy and placed in the posterior and inferior border of the right sacroiliac joint, placement confirmed with AP and lateral view, and after appropriate needle placement confirmed and after negative aspiration for heme and CSF and there was , 3 ml of Marcaine 0.5% and 40 mg of Kenalog injected after negative aspiration, no paresthesia during the injection, no resistance to injection, and the needle was removed. The entire same procedure was repeated for the left sacroiliac joint Patient tolerated the procedure well without any complication. The patient returned to supine position after the back was cleaned and a Band- Aid applied, the patient transported to recovery room in stable condition and he was monitored for 30 minutes before he was discharged home and then patient was reexamined before going home and patient was discharged in stable condition and patient will follow up with the pain clinic on August 13 for medication management.
[2017-07-24 09:00] VITALS: BP 137/69; PULSE 59
--- NOTE | 2017-07-24 12:47 | FL ---
Fluoroscopy HISTORY: Pain 3 seconds fluoroscopy time supplied to the referring clinician. 1 intraoperative C-arm images docume nt the procedure. See dictated report from anesthesia.
== END | disposition home or self-care (01) ==
LOC: ORPAIN 07:03
PROVIDERS: ATTEND Pain Medicine Pain Medicine
DX: M46.1 Sacroiliitis, not elsewhere classified (principal); G89.29 Other chronic pain; M47.817 Spondylosis without myelopathy or radiculopathy, lumbosacral region; Z91.012 Allergy to eggs; Z91.040 Latex allergy status; Z91.011 Allergy to milk products; Z88.6 Allergy status to analgesic agent
CPT/HCPCS: 27096; J2250; J3301; J3010

== ENCOUNTER → 2017-07-30 | Outpatient (CLI) | payer MEDICAID ==
[2017-07-30 12:00] VITALS: BP 162/92; PULSE 92; RESP 15; TEMP 97.8
--- NOTE | 2017-07-30 12:30 | P.PAINPG ---
Subjective Progress Note Date: 07/30/17 This is follow-up visit for this patient with a history of severe and chronic low back pain secondary to lumbar failed back surgery syndrome, and Right sacroiliitis We have done an interventional pain procedure caudal epidural steroid injection patient had no benefit from it, and later on we did a right sacroiliac joint steroid injection, he had good benefit from it, but only for short term, The patient currently on [facility] 10/325 every 8 hours , and she is getting a prescription for Xanax from her primary care and also amitriptyline Patient denies any side effect of the medication , patient denies any excessive drowsiness or sleepiness, patient denies any suicidal ideation, Patient reported that the current medication is helping to control the pain and improve the activity of daily livings, Patient denies any motor or sensory deficit, denies any change in the bowel movement or urination, patient denies any fever or night sweats. Patient here today for follow-up visit and medication refill Objective - Vital Signs Vital signs: Vital Signs Temp 97.8 F 07/30/17 11:55 Pulse 92 07/30/17 11:55 Resp 15 07/30/17 11:55 BP 162/92 07/30/17 11:55 Pulse Ox 98 07/30/17 11:55 Intake & Output 07/29/17 07/30/17 07/30/17 18:59 06:59 18:59 Weight 54.431 kg - Exam Physical Examinations : 1-Constitutiona : Cooperative , not in acute distress . 2-HEENT : nech ; supple , no Lymphadenopathy , normal thyroid size . eyes : no ptosis , no icterus, no photophobia . ENT : normal of hearing , normal oropharynx , no Thrush . 3- Respiratory : Chest clear to auscultations Bilaterally , no wheezing , no Rhonchi . 4- Cardiovascular : regular rate and rhythem , S1 , S2 , no S3 , no S4. 5- Gastrointestinal : abdomen soft no tenderness , bowel sounds , no organomegally . 6- Genitourinary : Defferred . 7- neurologic : Cranial nerve II to XII intact , no focal neurological deffecit . 8-psychatric : alert , oriented X 3 , appropriate affect , intact judgment and insight . 9-Lymphatic : no Lymphadenopathy . 10- musculoskeltal : Lumber spine = normal moter stegnth lower extremities ,thigh and legs .5/5 deep tendon reflexes : normal Knee Jerk , normal ankle Jerk . lumber facet Loading Test positive on the right side strait leg raising test positive at 30 degree Right , negative on the Left Fabere test positive Right and negative Left Sever tenderness over the Sacroiliac joint on the Right , negative on the left Assessment and Plan Plan: Assessment and plan= chronic low back pain secondary to right sacroiliitis , failed back surgery syndrome and lumbar area Patient had no benefit from caudal epidural steroid injections. 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) Patient denies any side effects of the current pain medication and the current treatment/medication helping the patient to do activity of daily living , Diagnoses, prognosis, treatment options, including but not limited to physical therapy, medication management, interventional therapies, and surgery, were discussed with the patient All the questions answered Patient signed the narcotic agreement, and was orally counseled, not to overuse, not to abuse, not to Divert , not tp sell pain medication, and to take it as prescribed only, Patient was counseled not to drive or operate heavy equipment while using narcotic medication, and advised not to use alcohol or any Illicit drugs while using the narcotis, the patient's verbalized understanding that lack of compliance with any of the above instructions, will likely to cause discharge from, the pain service, not to renew his narcotic prescriptions Medication managements= patient will be given prescription refills for [facility] 10/325 every 8 hours dispense 90 with 1 refill The risk of combination between the opioid and benzodiazepine was faxed to the primary care . Patient signed the agreement and acknowledgment about the risk of opioid medication treatment. Patient will be good candidate to have radiofrequency ablation of the right- sided sacroiliac joint, (radiofrequency ablation of the L5-S1 dorsal ramus and the radiofrequency ablation of the lateral branches of S1/S2/S3 , PQRS Measure Charge Sheet Measure #130: Documentation of Current Meds in Medical Chart: Patient's medications documented in chart Measure #226: Tobacco Use: Screen & Cessation Intervention: Pt screened for tobacco use AND intervention given Measure #111: Pneumonia Vaccination: Pneumococcal vaccine administered or previously received Measure #47: Advance Care Plan: Advance care planning discussed & documented, plan or surrogate given Measure #412: Opioid Treatment Agreement: Documented signed opioid trtmnt agreemnt min once during opioid trtmnt Measure #408: Opioid Therapy Follow-up Evaluation: Patient had f/u eval minimum every 3 months during opioid therapy Measure #317: Preventitive Care & Scrn High Bld Press & F/U: Pre-hypertensive or hypertensive BP documented, pt will f/u with PCP Measure #128: Body Mass Index (BMI) Screening & Follow-up: BMI documented within normal parameters Measure #131: Pain Assessment & Follow-up: Pain positive & plan documented Measure #431: Unhealthy Alcohol Use Preventative Care & Scrn: Patient not identified as an unhealthy alcohol user PQRS Narrative: Smoking Status Current every day smoker Do You Want the Pneumonia Vaccine Up to Date Vaccine AT THIS TIME? Narcotic Agreement Date Signed 01/15/17 Blood Pressure 162/92 Pain Intensity [Right Buttock] 7 Scale Used Numeric (1 - 10) Hx Alcohol Use (MH) No Home Medications: Ambulatory Orders ALPRAZolam [Xanax] 1 mg PO DAILY PRN 02/03/15 Butalb/APAP/Caff 50-325-40Mg [Fioricet 50-325-40] 1 tab PO DIRECTED PRN 02/03 Cetirizine HCl [Zyrtec] 10 mg PO DAILY 02/03/15 Dextroamphetamine/Amphetamine [Adderall] 30 mg PO BID PRN 02/03/15 Levothyroxine Sodium [Synthroid] 50 mcg PO DAILY 02/03/15 Albuterol Inhaler [Ventolin Hfa Inhaler] 1 - 2 puff INHALATION Q6HR PRN Amitriptyline HCl [Elavil] 50 mg PO HS #30 tab 03/12/17 HYDROcodone/APAP 10-325MG [[facility] 10-325] 1 tab PO Q8HR PRN #90 tab 07/30/17 HYDROcodone/APAP 10-325MG [[facility] 10-325] 1 tab PO Q8HR PRN 30 Days #90 tab 07/30 Controlled Substance Measures - Controlled Substance Measures Is patient prescribed a controlled substance at discharge?: Yes When asked, does pt state using other controlled substances?: Yes If prescribed controlled substance>3 days was MAPS reviewed?: Yes If Rx opioid, was Start Talking consent form obtained?: Yes If opioid is for acute pain is fill amount 7 days or less?: No Was information provided regarding opioid addiction?: Yes
== END | disposition home or self-care (01) ==
LOC: PNWHC3 11:31
PROVIDERS: ATTEND Specialist
DX: G89.29 Other chronic pain (principal); M54.5 Low back pain; M46.1 Sacroiliitis, not elsewhere classified; M96.1 Postlaminectomy syndrome, not elsewhere classified; Z79.891 Long term (current) use of opiate analgesic; Z79.52 Long term (current) use of systemic steroids; F17.200 Nicotine dependence, unspecified, uncomplicated; Z79.51 Long term (current) use of inhaled steroids; Z79.899 Other long term (current) drug therapy
CPT/HCPCS: 99211

== ENCOUNTER 2017-08-28 07:04 | Day surgery (SDC) | payer MEDICAID ==
[2017-08-28 08:06] VITALS: TEMP 97.9
[2017-08-28] MEDS ORDERED: LACTATED RINGERS 1,000 ML IV ONE (08:20)
[2017-08-28] MEDS ORDERED: LIDOCAINE 1% 20 ML VIAL (10MG/ML) FOR IV START INTRADERMA ONE (08:20)
--- NOTE | 2017-08-28 08:28 | P.PCN ---
Date of Procedure: 08/28/17 Description of Procedure: RF of lateral branch: 34177 RF of the L5 Dorsal Ramus and S1, S2, and S3 LB Date of the procedure: PREOPERATIVE DIAGNOSIS: 1. Lumbosacral Spondylosis. 2. Bilateral sacroiliitis. POSTOPERATIVE DIAGNOSIS: 1-Lumbosacral arthropathy. 2-Bilateral sacroiliitis. PROCEDURES: 1. Right Radiofrequency thermocoagulation/ablation of the L5 dorsal ramus. 2. Right Radiofrequency thermocoagulation/ablation of the S1, S2, and S3 lateral branchs. The procedure was performed using fluoroscopic guidance during needle placement to assure proper position and maximize safety. PROVIDER: Sloan Wolfe M.D. ANESTHESIA: Local Anesthesia, conscious sedation with Versed 2mg, Fentanyl 100 mcgs EBL: NONE INDICATION/MEDICAL NECESSITY: History of low back pain secondary Right Lumbosacral Spondylosis and lumbosacral arthropathy unresponsive to more conservative treatments. This is the first??second?? diagnostic block. The patient reported more than 50% relief of pain symptoms following 2 previous diagnostic blocks with Bupivacaine. PROCEDURE DESCRIPTION: The patient was seen and identified in the preoperative area. Risks, benefits, complications, and alternatives were discussed with the patient. The patient agreed to proceed with the procedure and signed the consent. Vital signs were checked before and after the procedure and they remained stable. Patient ambulated to the procedure room and time out was completed. The patient was placed in the prone position on the procedure table and a pillow was placed under the abdomen to reduce lumbar lordosis. The lumbosacral area was prepped and draped in the usual sterile fashion. Critical pause was taken. L5 Dorsal Ramus RF: Using right oblique fluoroscopy, the junction of the transverse process and the superior articular process of the right S1 vertebra, which correspond to the fluoroscopic image of the "eye of the Akash dog" was identified. Subsequently, a 10-cm 22-gauge radiofrequency cannula with a 10-mm active tip was advanced under fluoroscopic guidance until contact was made with periosteum. At this level, the Sensory testing of the L5 dorsal ramus was performed at 50 Hz and 0 to 1 volt with production of concordant pain starting at 0.5 volt. Motor stimulation was done at 2 Hz with stimulation of mulitifidus muscle contration at 1.5 volts. No radicular symptoms or paresthesias were produced during the testing. Subsequently, the L5 dorsal ramus was subjected to a radiofrequency ablation at a mode of 90 seconds at 80 degrees Celsius after negative motor and sensory testing and after injecting 0.5 ml of preservative free Bupivacaine 0.5%. The needle was withdrawn intact the procedure was repeated on the Right side using the same technique. S1, S3, and S3 Lateral Branch RF: The lateral margins of the Right S1, S2, and S3 foramina were identified using AP fluoroscopy. Under fluoroscopic guidance, three 10-cm 22-gauge radiofrequency cannula with a 10-mm active tip were inserted at 8-10 mm peripheral to the posterior S1 foramen, at various locations using clock-face coordinates. The center of the clock was registered at the lateral margin of the foramen. The 2:30, 4:00, and 5:30 oclock positions were used. At this level , the sensory testing of the S1 lateral branch was performed at 50 Hz and 0 to 1 volt at the three levels with production of concordant pain starting at 0.5 volt. Motor stimulation was done at 2 Hz. No radicular symptoms or paresthesias were produced during the testing. Subsequently, the S1 lateral branch was subjected to a radiofrequency ablation at a mode of 90 seconds at 80 degrees Celsius at the 3 levels after negative motor and sensory testing and after injecting 0.5 ml of preservative free Bupivacaine 0.5??%. The same procedure was performed at the level of the S2 foramen. For the S3 foramen, only the 2:30 and 4:00 oclock positions were used. Sensory and motor testing followed by radiofrequency ablation were performed as described for the S1 and S2 foramina. The same procedure was repeated on the left side using the following locations: The 9:30, 8:00, and 6:30 oclock positions were used for the S1 and S2 foramina and the 9:30 and 8:00 oclock positions were used for the S3 foramen. The needle was withdrawn intact after each injection. COMPLICATIONS: The patient tolerated the procedure well without any acute complications. DISPOSTION/PLAN: The patient ambulated to the recovery area after the procedure in a stable condition for observation. Patient was reexamined prior to discharge. Patient was observed for 30 minutes in the recovery area and was discharged home, accompanied by an adult, after meeting discharged criteria. Discharge instructions were give to the patient by the staff. Patient was specifically instructed not to drive today and to rest for the rest of the day. The patient will schedule a follow up visit in the clinic in 4 weeks.
[2017-08-28] MEDS ORDERED: LACTATED RINGERS 1,000 ML IV SCH ×2 (08:30→08:45)
--- NOTE | 2017-08-28 09:19 | FL ---
Fluoroscopy HISTORY: Pain 30 seconds fluoroscopy time supplied to the referring clinician. 2 intraoperative C-arm images docum ent the procedure. See dictated report from anesthesia.
[2017-08-28 09:38] VITALS: RESP 18
[2017-08-28 09:44] VITALS: BP 162/68; PULSE 68
[2017-08-28] MEDS ORDERED: IV FLUID CONTINUATION 1,000 ML IV ONE (09:45)
== END 2017-08-28 09:52 ==
LOC: ORPAIN 07:04
PROVIDERS: ATTEND Anesthesiology
DX: G89.29 Other chronic pain (principal); M46.97 Unspecified inflammatory spondylopathy, lumbosacral region; M46.1 Sacroiliitis, not elsewhere classified; M96.1 Postlaminectomy syndrome, not elsewhere classified; F17.210 Nicotine dependence, cigarettes, uncomplicated; Z79.891 Long term (current) use of opiate analgesic; Z88.5 Allergy status to narcotic agent; Z91.040 Latex allergy status
CPT/HCPCS: 64640; 64635; J2250; J1030; J3010; 99152; 99153

== ENCOUNTER → 2017-09-25 | Outpatient (CLI) | payer MEDICAID ==
[2017-09-25 11:57] VITALS: BP 173/91; PULSE 85; RESP 16
--- NOTE | 2017-09-25 12:37 | P.PAINPG ---
Subjective Progress Note Date: 09/25/17 Principal diagnosis: Postlaminectomy syndrome, lumbar spondylosis, bilateral sacroiliitis This is a 52-year-old woman with a history of low back pain and multiple previous back surgeries including lumbar spine fusion who presents today for a follow-up appointment and medication management. She reports that the recent radio frequency ablation she had done on her lumbar medial branch nerves was helpful reduce to one component of her pain. She still complains substantial pain lower in her back at her sacroiliac joints. She continues to work supply chain engineer. She is tolerating her medications well. Objective - Vital Signs Vital signs: Vital Signs Temp Pulse 85 09/25/17 11:54 Resp 16 09/25/17 11:54 BP 173/91 09/25/17 11:54 Pulse Ox 100 09/25/17 11:54 Intake & Output 09/24/17 09/25/17 09/25/17 18:59 06:59 18:59 Weight 52.163 kg - Exam General: The patient is alert and oriented. Patient is not sedated Patient answers all question appropriately. Cardiac: Heart is regular in rate and rhythm Respiratory: Clear to auscultation. No audible wheezes. Abdomen: Soft nontender nondistended. Lower extremities: Strength is normal bilaterally. Sensation is normal bilaterally. Reflexes are preserved and symmetric bilaterally. Straight leg raise is negative bilaterally. Patient is especially tender over her sacroiliac joints bilaterally. Facet loading maneuvers are negative. Assessment and Plan (1) Lumbar spondylosis Current Visit: Yes Status: Acute Code(s): M47.816 - SPONDYLOSIS W/O MYELOPATHY OR RADICULOPATHY, LUMBAR REGION SNOMED Code(s): 803259643 (2) Sacroiliitis Narrative/Plan: Plan of Care 1. Medications: I will refill the patient's frustration for [place] today. I had a long discussion with her regarding the risks of the benzodiazepine, Xanax, that she is taking now as well as the [place]. We have previously faxed a perception to her doctor's office to provide input regarding a plan of care to wean off one of these medications. We never received any reply. Therefore I put the responsibility of the patient today. She will discuss this with her physician and presents as with a form regarding their treatment plan. If she fails to do this we will no longer be able to prescribe opiates for her. She has signed the [place] start talking form today. She will submit a urine drug screen today. I have reviewed the patient's MAPS report and it reveals expected results. Patient has signed an opiate agreement as well as opiate consent for treatment in our clinic. They understand the risks and benefits of opiate medications. They are aware of the potential for addiction. 2. Interventions: Patient has previous undergone bilateral sacroiliac joint injections which were helpful. She's also undergone radio frequency ablation in the past and this is been very helpful for her. 3. Referrals: patient was referred back to her primary care physician to discuss another manner of treating her anxiety other than Xanax. 4. Testing: None 5. Psychological: patient may follow-up with her primary care physician and be referred to a mental health specialist for other medications to treat anxiety if necessary.] Current Visit: Yes Status: Acute Code(s): M46.1 - SACROILIITIS, NOT ELSEWHERE CLASSIFIED SNOMED Code(s): 15704625 (3) Bilateral sacroiliitis Current Visit: Yes Status: Acute Code(s): M46.1 - SACROILIITIS, NOT ELSEWHERE CLASSIFIED SNOMED Code(s): 29227398 PQRS Measure Charge Sheet Measure #130: Documentation of Current Meds in Medical Chart: Patient's medications documented in chart Measure #226: Tobacco Use: Screen & Cessation Intervention: Pt screened for tobacco use AND intervention given Measure #111: Pneumonia Vaccination: Pneumococcal vaccine NOT administered or previously given Measure #47: Advance Care Plan: Advance care planning discussed & documented, pt chose/unable to give Measure #412: Opioid Treatment Agreement: Documented signed opioid trtmnt agreemnt min once during opioid trtmnt Measure #408: Opioid Therapy Follow-up Evaluation: Patient had f/u eval minimum every 3 months during opioid therapy Measure #317: Preventitive Care & Scrn High Bld Press & F/U: Normal blood pressure, f/u not required Measure #128: Body Mass Index (BMI) Screening & Follow-up: BMI documented within normal parameters Measure #131: Pain Assessment & Follow-up: Pain positive & plan documented Measure #431: Unhealthy Alcohol Use Preventative Care & Scrn: Patient not identified as an unhealthy alcohol user PQRS Narrative: Smoking Status Current every day smoker Do You Want the Pneumonia Vaccine Up to Date Vaccine AT THIS TIME? Narcotic Agreement Date Signed 01/15/17 Blood Pressure 173/91 Pain Intensity [Right Lower 4 Back] Scale Used Numeric (1 - 10) Hx Alcohol Use (MH) No Home Medications: Ambulatory Orders ALPRAZolam [Xanax] 1 mg PO DAILY PRN 02/03/15 Butalb/APAP/Caff 50-325-40Mg [Fioricet 50-325-40] 1 tab PO DIRECTED PRN 02/03 Cetirizine HCl [Zyrtec] 10 mg PO DAILY 02/03/15 Dextroamphetamine/Amphetamine [Adderall] 30 mg PO BID PRN 02/03/15 Levothyroxine Sodium [Synthroid] 50 mcg PO DAILY 02/03/15 Albuterol Inhaler [Ventolin Hfa Inhaler] 1 - 2 puff INHALATION Q6HR PRN Amitriptyline HCl [Elavil] 50 mg PO HS #30 tab 03/12/17 HYDROcodone/APAP 10-325MG [[place] 10-325] 1 tab PO Q8HR PRN #90 tab 07/30/17 Controlled Substance Measures - Controlled Substance Measures Is patient prescribed a controlled substance at discharge?: Yes When asked, does pt state using other controlled substances?: Yes If prescribed controlled substance>3 days was MAPS reviewed?: Yes If Rx opioid, was Start Talking consent form obtained?: Yes Was information provided regarding opioid addiction?: Yes
== END | disposition home or self-care (01) ==
LOC: PNWHC3 11:40
PROVIDERS: ATTEND Pain Medicine Pain Medicine
DX: M47.816 Spondylosis without myelopathy or radiculopathy, lumbar region (principal); M46.1 Sacroiliitis, not elsewhere classified; F17.200 Nicotine dependence, unspecified, uncomplicated; Z79.899 Other long term (current) drug therapy; Z98.1 Arthrodesis status
CPT/HCPCS: 80307; 99211; G0482

== ENCOUNTER 2017-10-09 07:03 | Day surgery (SDC) | payer MEDICAID ==
[2017-10-09 08:32] VITALS: RESP 16; TEMP 98.4
[2017-10-09] MEDS ORDERED: LACTATED RINGERS 1,000 ML IV SCH (08:34)
[2017-10-09] MEDS ORDERED: LIDOCAINE 1% 20 ML VIAL (10MG/ML) FOR IV START INTRADERMA ONE (08:43)
--- NOTE | 2017-10-09 09:08 | P.PCN ---
Date of Procedure: 10/09/17 Procedure(s) Performed: Preoperative diagnoses= 1-sacroiliitis. 2-failed back surgery syndrome lumbar area Postoperative diagnoses= same as preoperative diagnosis. Procedure= Left sacroiliac joint steroid injection under fluoroscopic guidance. Anesthesia= moderate sedation with Versed 2 mg and fentanyl 100 micrograms and local infiltration with lidocaine 1% 2 ml Estimated blood loss=minimal. Procedure indication= the patient had a history of severe chronic low back pain , diagnosed with sacroiliitis and lumbar sacral facet arthropathy unresponsive to conservative treatment. Procedure description= the patient was seen and identified in the preoperative holding area, risks and benefits and alternative of the procedure and possible complications discussed with the patient, and he agreed with the preceding, patient signed the consent, an IV was started, and vital signs were monitored and were stable throughout the procedure, patient was placed in the prone position or table and the lumbosacral area was prepped and draped with a sterile fashion, vital signs were closely monitored during the procedure, the fluoroscopy camera was placed in the contralateral oblique view on the right sacroiliac joint and the lower part of the joint was identified, local infiltration of the skin and subcutaneous tissue with lidocaine 1% 2 mL then a 22-gauge Quincke-type spinal needle advanced slowly under fluoroscopy and placed in the posterior and inferior border of the left sacroiliac joint, placement confirmed with AP and lateral view, and after appropriate needle placement confirmed and after negative aspiration for heme and CSF and there was no paresthesia during the injection, 3 ml of Marcaine 0.5% and 40 mg of Kenalog injected after negative aspiration, the needle removed, Patient tolerated the procedure well without any complication, The patient returned to supine position after the back was cleaned and a Band- Aid applied, the patient transported to recovery room in stable condition and he was monitored for 30 minutes before he was discharged home and then patient was reexamined before going home and patient was discharged in stable condition and patient will follow up with the pain clinic in a few weeks
[2017-10-09] MEDS ORDERED: IV FLUID CONTINUATION 1,000 ML IV ONE (09:14)
[2017-10-09] MEDS ORDERED: KETOROLAC 30 MG/ML 1 ML VIAL IVP STA (09:18)
[2017-10-09 09:31] VITALS: BP 132/83
--- NOTE | 2017-10-09 09:47 | FL ---
EXAMINATION TYPE: FL guided pain mgmt statistic DATE OF EXAM: 10/09/2017 HISTORY: Flouroscopy time 2 seconds of fluoroscopy provided. IMPRESSION: 1. Fluoroscopy time.
[2017-10-09 09:54] VITALS: PULSE 81
== END 2017-10-09 10:03 | disposition home or self-care (01) ==
LOC: ORPAIN 07:03
PROVIDERS: ATTEND Specialist
DX: M46.1 Sacroiliitis, not elsewhere classified (principal); M96.1 Postlaminectomy syndrome, not elsewhere classified; G89.29 Other chronic pain; E03.9 Hypothyroidism, unspecified; Z88.5 Allergy status to narcotic agent; Z91.011 Allergy to milk products; Z91.040 Latex allergy status
CPT/HCPCS: 27096; J2250; J3301; J3010; J1885

== ENCOUNTER 2017-11-01 09:10 | Day surgery (SDC) | payer MEDICAID ==
[2017-10-31 10:52] VITALS: BMI 19.7
[2017-11-01] MEDS ORDERED: LACTATED RINGERS 1,000 ML IV SCH (09:15)
[2017-11-01 09:39] VITALS: TEMP 98.3
[2017-11-01] MEDS ORDERED: LIDOCAINE 1% 20 ML VIAL (10MG/ML) FOR IV START INTRADERMA ONE (09:46)
--- NOTE | 2017-11-01 10:53 | P.PCN ---
Date of Procedure: 11/01/17 Procedure(s) Performed: Procedure= Left sacral iliac joints steroid injection under fluoroscopy guidance Preoperative diagnosis= 1-sacroiliitis 2-lumbar degenerative disc disease 3- lumbar facet arthropathy Postoperative diagnosis=1-sacroiliitis 2-lumbar degenerative disc disease 3- lumbar facet arthropathy Complication = none Condition= stable Fluoroscopy time = seconds Anesthesia= IV sedation with Versed and fentanyl Indication for the procedure= patient complaining of low back pain , examination was positive for severe tenderness over the sacroiliac joints bilaterally and patient diagnosed with sacroiliitis, for this reason he/ she was good candidate for sacroiliac joint steroid injection. Description of the procedure= procedure risk and benefits discussed with the patient, including but not limited, risk of infection and bleeding, and ALLERGIC reaction to the medication and not complete pain relief and patient agreed with the preceding patient taken to the operating room, placed in prone position or standard monitors applied to the patient then after induction of anesthesia back prepped with chlorhexidine 3 times , Then under strict sterile technique, first I did the right sacroiliac joint the which was identified under fluoroscopy guidance been local infiltration of the skin and subcu interstitial with lidocaine 1% then 22-gauge Qu[place]ke Needle advanced slowly under fluoroscopy and placed in the right sacroiliac joint needle placement confirmed with AP and oblique and lateral view and after appropriate needle placement confirmed and after negative aspiration, or heme the Marcaine 0.5% 3 mL and 10mg dexamethasone mixed together and injected in the left sacroiliac joint after negative aspiration patient tolerated the procedure well without any complication.
[2017-11-01] MEDS ORDERED: IV FLUID CONTINUATION 700 ML IV ONE (11:10)
[2017-11-01 11:40] VITALS: RESP 16
[2017-11-01 11:42] VITALS: BP 124/73; PULSE 89
--- NOTE | 2017-11-01 13:02 | FL ---
Fluoroscopy HISTORY: Pain 2 seconds fluoroscopy time supplied to the referring clinician. 1 intraoperative C-arm images docume nt the procedure. See dictated report from anesthesia.
== END 2017-11-01 11:47 | disposition home or self-care (01) ==
LOC: ORPAIN 09:10
PROVIDERS: ATTEND Hospitalist
DX: M46.1 Sacroiliitis, not elsewhere classified (principal); M51.36 Other intervertebral disc degeneration, lumbar region; M46.96 Unspecified inflammatory spondylopathy, lumbar region; E07.9 Disorder of thyroid, unspecified; F41.9 Anxiety disorder, unspecified; Z88.5 Allergy status to narcotic agent; Z91.040 Latex allergy status
CPT/HCPCS: 27096; J2250; J1100; J3010

== ENCOUNTER → 2017-11-22 | Outpatient (CLI) | payer MEDICAID ==
[2017-11-22 13:34] VITALS: BP 146/88; PULSE 79; RESP 18
--- NOTE | 2017-11-22 18:42 | P.PAINPG ---
Subjective Progress Note Date: 11/22/17 This is a 52 years old female with a chronic history of severe low back pain patient had lumbar fusion surgery, and recently we did radiofrequency ablation of the right sacroiliac joint, then later on we did left-sided sacroiliac joint steroid injection, currently she is complaining of low back pain with radiation to the right buttock area, she is currently on [place] 10/325 every 8 hours, she denies any fever or night sweats she denies any change in the bowel movement or urination and she denies any motor or sensory deficit Objective - Vital Signs Vital signs: Vital Signs Temp Pulse 79 11/22/17 13:23 Resp 18 11/22/17 13:23 BP 146/88 11/22/17 13:23 Pulse Ox 97 11/22/17 13:23 Intake & Output 11/21/17 11/22/17 11/22/17 18:59 06:59 18:59 Weight 53.524 kg - Exam Physical Examinations : 1-[place] : Cooperative , not in acute distress . 2-HEENT : nech ; supple , no Lymphadenopathy , normal thyroid size . eyes : no ptosis , no icterus , no photophobia . ENT : normal of hearing , normal oropharynx , no Thrush . 3- Respiratory : Chest clear to auscultations Bilaterally , no wheezing , no Rhonchi . 4- Cardiovascular : regular rate and rhythem , S1 , S2 , no S3 , no S4. 5- Gastrointestinal : abdomen soft no tenderness , bowel sounds , no organomegally . 6- Genitourinary : Defferred . 7- neurologic : Cranial nerve II to XII intact , no focal neurological deffecit . 8-psychatric : alert , oriented X 3 , appropriate affect , intact judgment and insight . 9-Lymphatic : no Lymphadenopathy . 10- musculoskeltal : Lumber spine moter stegnth lower extremities ,thigh and legs 5/5 Right side , 5/5 Left side Normal sensation in the lower extremities deep tendon reflexes : normal Knee Jerk , normal ankle Jerk lumber facet Loading Test negative Range of motion of the lumbar spine , Flexion in extension full range of motion strait leg raising test , negative bilaterally Fabere test negative bilaterally NO tenderness over the Sacroiliac joint on the R and L sides MRI of the lumbar spine done 2 years ago showed L5-S1 fusion Assessment and Plan Plan: Assessment and plan= lumbar radiculopathy right side L3 4 dermatomal distribution, patient had history of lumbar laminectomy and fusion Patient could benefit from caudal epidural steroid injection with lysis of epidural adhesions under fluoroscopy guidance Prescription refill for [place] 10/325 every 8 hours . MAPS reviewed ,and it was appropriate Time with Patient: Less than 30 PQRS Measure Charge Sheet Measure #130: Documentation of Current Meds in Medical Chart: Patient's medications documented in chart Measure #226: Tobacco Use: Screen & Cessation Intervention: Pt screened for tobacco use AND intervention given Measure #111: Pneumonia Vaccination: Pneumococcal vaccine NOT administered or previously given Measure #47: Advance Care Plan: Advance care planning discussed & documented, pt chose/unable to give Measure #412: Opioid Treatment Agreement: Documented signed opioid trtmnt agreemnt min once during opioid trtmnt Measure #408: Opioid Therapy Follow-up Evaluation: Patient had f/u eval minimum every 3 months during opioid therapy Measure #317: Preventitive Care & Scrn High Bld Press & F/U: Pre-hypertensive or hypertensive BP documented, pt will f/u with PCP Measure #128: Body Mass Index (BMI) Screening & Follow-up: BMI documented within normal parameters Measure #131: Pain Assessment & Follow-up: Pain positive & plan documented, Follow-up scheduled Measure #431: Unhealthy Alcohol Use Preventative Care & Scrn: Patient not identified as an unhealthy alcohol user PQRS Narrative: Smoking Status Current every day smoker Do You Want the Pneumonia No Vaccine AT THIS TIME? Narcotic Agreement Date Signed 01/15/17 Blood Pressure 146/88 Pain Intensity [Generalized] 6 Scale Used Numeric (1 - 10) Hx Alcohol Use (MH) No Home Medications: Ambulatory Orders ALPRAZolam [Xanax] 1 mg PO DAILY PRN 02/03/15 Butalb/APAP/Caff 50-325-40Mg [Fioricet 50-325-40] 1 tab PO DIRECTED PRN 02/03 Cetirizine HCl [Zyrtec] 10 mg PO DAILY 02/03/15 Dextroamphetamine/Amphetamine [Adderall] 30 mg PO BID PRN 02/03/15 Levothyroxine Sodium [Synthroid] 50 mcg PO DAILY 02/03/15 Albuterol Inhaler [Ventolin Hfa Inhaler] 1 - 2 puff INHALATION Q6HR PRN Amitriptyline HCl [Elavil] 50 mg PO HS #30 tab 03/12/17 HYDROcodone/APAP 10-325MG [[place] 10-325] 1 tab PO Q8HR PRN #90 tab 07/30/17 Controlled Substance Measures - Controlled Substance Measures Is patient prescribed a controlled substance at discharge?: Yes When asked, does pt state using other controlled substances?: No If prescribed controlled substance>3 days was MAPS reviewed?: Yes If Rx opioid, was Start Talking consent form obtained?: Yes If opioid is for acute pain is fill amount 7 days or less?: No Was information provided regarding opioid addiction?: Yes
== END | disposition home or self-care (01) ==
LOC: PNWHC3 12:39
PROVIDERS: ATTEND Specialist
DX: G89.29 Other chronic pain (principal); M54.5 Low back pain; M54.16 Radiculopathy, lumbar region; F17.200 Nicotine dependence, unspecified, uncomplicated; Z98.1 Arthrodesis status; Z98.890 Other specified postprocedural states; Z79.891 Long term (current) use of opiate analgesic; Z71.6 Tobacco abuse counseling
CPT/HCPCS: 99211

== ENCOUNTER → 2017-12-26 | Day surgery (SDC) | payer MEDICAID ==
[2017-12-24 18:21] VITALS: BMI 20.2
[~2017-12-26] MED LIST changes: -LACTATED RINGERS 1,000 ML IV ONE; -LIDOCAINE 1% 20 ML VIAL (10MG/ML) FOR IV START INTRADERMA ONE; +SODIUM CHLORIDE 0.9% 500 ML 500 ML IV ONE; +SODIUM CHLORIDE 0.9% 500 ML 500 ML IV SCH
[2017-12-26 10:23] VITALS: RESP 16; TEMP 98.6
--- NOTE | 2017-12-26 10:55 | P.PCN ---
Date of Procedure: 12/26/17 Surgeon: Jayshree Cobos Pathology: none sent Condition: stable Disposition: PACU Description of Procedure: PREOP DIAGNOSIS: Lumbar postlaminectomy syndrome. POSTOP DIAGNOSIS: Lumbar postlaminectomy syndrome. PROCEDURE: Caudal epidural steroid injection with epidurolysis and epidurogram under fluoroscopic guidance ANESTHESIA: Local with 1% lidocaine; IV moderate conscious sedation EBL: Minimal. PROCEDURE INDICATION: The patient with post-laminectomy syndrome with low back pain and radiculopathy radiating down in both legs, here for a caudal epidural steroid injection with epidurolysis. PROCEDURE DESCRIPTION: The patient was seen in the preoperative holding area consent was obtained then he was brought into the procedure room and placed in prone position. Skin was prepped with ChloraPrep and draped in a sterile manner. Lidocaine 1% was used to numb the skin up at the target point that was chosen as follows: The lateral view of fluoroscopy was used to identify the sacral hiatus and then after localizing the skin with lidocaine 1% I used 18- gauge epidural needle with a plastic sheath to go through the sacral hiatus and into the sacral canal and then injected 1 mL of Omnipaque for verification of needle tip position. After that the metal core of the needle was taken out and the plastic sheath was kept in the sacral canal. Then Racz catheter was introduced through the plastic sheath and into the epidural space at the sacral canal using the AP view of fluoroscopy up to L5-S1 level then I injected 2 MLS of Omnipaque which showed limited spread in the epidural space and after few back and forth movements of the Racz catheter I was able to introduce the needle one level higher to the L4-5 level and then there was more spread of the Omnipaque after injecting 3 more mils of Omnipaque on the AP view of fluoroscopy. After that I injected 40 mg of Kenalog +2 MLS of Marcaine 0.25% + 7 MLS of preservative-free normal saline to a total volume of 10 MLS in the epidural space. Patient tolerated procedure well. Of note: The Racz catheter was introduced to the right side of midline because most of the patient's pain is on the right side of the lower back and also down the right leg to the right foot . COMPLICATIONS: None. DISPOSITION / PLANS: The patient was placed in a supine position and transferred to the recovery area in a stable condition for observation and was discharged from the recovery room after meeting discharge criteria. Home discharge instructions given to the patient by the staff. The patient was reexamined prior to discharge.
--- NOTE | 2017-12-26 11:05 | FL ---
EXAMINATION TYPE: FL guided pain mgmt statistic DATE OF EXAM: 12/26/2017 HISTORY: Flouroscopy time 9 seconds of fluoroscopy provided. IMPRESSION: 1. Fluoroscopy time.
[2017-12-26 11:33] VITALS: BP 127/69; PULSE 93
== END | disposition home or self-care (01) ==
LOC: ORPAIN 09:25
PROVIDERS: ATTEND Anesthesiology
DX: M96.1 Postlaminectomy syndrome, not elsewhere classified (principal); Z88.5 Allergy status to narcotic agent; Z88.8 Allergy status to other drugs, medicaments and biological substances; Z91.040 Latex allergy status
CPT/HCPCS: 62264; J2250; J3301; J3010; Q9966; 62323; 99152

== ENCOUNTER → 2018-01-31 | Outpatient (CLI) | payer MEDICAID ==
[2018-01-31 12:03] VITALS: BP 158/90; PULSE 91; RESP 18
--- NOTE | 2018-01-31 12:19 | P.PN ---
Subjective Progress Note Date: 01/31/18 Principal diagnosis: Lumbar postlaminectomy Debbi is a 52-year-old female presenting today for follow-up. She is status post caudal epidural with lysis. She reports that she had pretty good relief of back pain after the epidural. She reports that she sometimes has spasms which she feels throughout her body. Unclear whether the spasms are only low back or whether she just gets a pain throughout her body and she feels that she can't breathe for a minute. She reports sometimes he said "spasms" last about 30 minutes and they do not happen every day. She denies any new leg numbness or tingling pressure reports that her right foot numbness is significantly improved since the epidural steroid injection. She reports she still has some numbness in the right foot. She continues to work full-time. She reports that she does exercise daily and is doing some light weights. She has been in physical therapy in the past and does try to do some of those exercises. She refuses [place] 10 mg 3 times per day and denies any side effects from the current medications. She does use Xanax 1-2 tablets per day. I discussed with patient the risks of using Xanax. I had her sign a new narcotics contract on today's visit. I discussed with her the risks from the Xanax. Objective - Exam General: Awake and alert oriented 3 no distress Respiratory exam: No audible wheezing no accessory muscle usage Cardiovascular exam: regular rate, palpable bilateral pulses, no lower extremity edema Abdominal exam: No distention nontender to palpation Cervical spine: Normal alignment, Spurling's negative, facet loading negative Lumbar spine: Loss of lumbar lordosis, surgical scars are well-healed, normal alignment, tender to palpation over bilateral paraspinal muscles, facet loading is negative bilaterally. Straight leg raise is negative. Strength is 5 out of 5 bilateral. Right lower extremity appears a little bit weaker but improves with significant coaching and encouragement. Sacroiliac joints: Nontender to palpation, [place] is negative, [place] negative Neuro exam: Normal sensation in bilateral upper extremities, deep tendon reflexes are 2+ bilateral upper extremities. Normal sensation in bilateral lower extremities. Deep tendon reflexes are 2+ in lower extremities Psych exam: Cooperative, appropriate mood Assessment and Plan Assessment: Lumbar postlaminectomy syndrome Plan: At this point I discussed the patient should continue to exercise. I discussed with her that her back is stable and there is no significant pathological problem. I told her that she should continue to exercise regularly and be able to strengthen her lumbar spine. I advised her to continue working full-time and try to minimize using the medications as much as possible. I advised that she should not use Xanax along with opioid medications as this increases risks side effects including . I've asked her to sign a narcotics contract today. She also has a opioid start talking form on file. I reviewed her maps on today's visit. We'll see the patient back in 2 months time
== END ==
LOC: PNWHC3 11:46
PROVIDERS: ATTEND Hospitalist
DX: M96.1 Postlaminectomy syndrome, not elsewhere classified (principal)
CPT/HCPCS: 99211

== ENCOUNTER → 2018-03-28 | Outpatient (CLI) | payer MEDICAID ==
[2018-03-28 12:28] VITALS: BP 171/90; PULSE 87; RESP 18
--- NOTE | 2018-03-28 13:09 | P.PN ---
Subjective Progress Note Date: 03/28/18 This is a follow-up visit for this a 52 years old female with a chronic history of severe low back pain, patient had lumbar fusion surgery, with done interventional pain management procedure , caudal epidural steroid injection with lysis of epidural adhesions , and that helped her low back pain significantly , her ability to function improved significantly , and her oral opioid intake decred , also previously we have the radiofrequency ablation of the right sacroiliac joint, then later on we did left-sided sacroiliac joint steroid injection, currently she is complaining of low back pain with radiation to the right buttock and to the right lower extremity, she is currently on [place] 10/325 every 8 hours, she denies any fever or night sweats she denies any change in the bowel movement or urination and she denies any motor or sensory deficit Physical Examinations : 1-Constitutiona : Cooperative , not in acute distress . 2-HEENT : nech ; supple , no Lymphadenopathy , normal thyroid size . eyes : no ptosis , no icterus , no photophobia . ENT : normal of hearing , normal oropharynx , no Thrush . 3- Respiratory : Chest clear to auscultations Bilaterally , no wheezing , no Rhonchi . 4- Cardiovascular : regular rate and rhythem , S1 , S2 , no S3 , no S4. 5- Gastrointestinal : abdomen soft no tenderness , bowel sounds , no organomegally . 6- Genitourinary : Defferred . 7- neurologic : Cranial nerve II to XII intact , no focal neurological deffecit . 8-psychatric : alert , oriented X 3 , appropriate affect , intact judgment and insight . 9-Lymphatic : no Lymphadenopathy . 10- musculoskeltal : Lumber spine moter stegnth lower extremities ,thigh and legs 5/5 Right side , 5/5 Left side Normal sensation in the lower extremities deep tendon reflexes : normal Knee Jerk , normal ankle Jerk lumber facet Loading Test negative Range of motion of the lumbar spine , Flexion in extension full range of motion strait leg raising test positive on the right side at 30 , negative on the left side Fabere test positive on the right side and negative on the left side NO tenderness over the Sacroiliac joint on the R and L sides MRI of the lumbar spine done 2 years ago showed L5-S1 fusion Assessment and plan= postlaminectomy pain syndrome lumbar . In the future ,Patient could benefit from caudal epidural steroid injection with lysis of epidural adhesions under fluoroscopy guidance Prescription refill for [place] 10/325 every 8 hours . MAPS reviewed ,and it was appropriate Patient already signed a narcotic agreement PQRS Measure Charge Sheet Measure #130: Documentation of Current Meds in Medical Chart: Patient's medications documented in chart Measure #226: Tobacco Use: Screen & Cessation Intervention: Pt screened for tobacco use AND intervention given Measure #111: Pneumonia Vaccination: Pneumococcal vaccine NOT administered or previously given Measure #47: Advance Care Plan: Advance care planning discussed & documented, pt chose/unable to give Measure #412: Opioid Treatment Agreement: Documented signed opioid trtmnt agreemnt min once during opioid trtmnt Measure #408: Opioid Therapy Follow-up Evaluation: Patient had f/u eval minimum every 3 months during opioid therapy Measure #317: Preventitive Care & Scrn High Bld Press & F/U: Pre-hypertensive or hypertensive BP documented, pt will f/u with PCP Measure #128: Body Mass Index (BMI) Screening & Follow-up: BMI documented within normal parameters Measure #131: Pain Assessment & Follow-up: Pain positive & plan documented, Follow-up scheduled Measure #431: Unhealthy Alcohol Use Preventative Care & Scrn: Patient not identified as an unhealthy alcohol user PQRS Narrative: - Controlled Substance Measures Is patient prescribed a controlled substance at discharge?: Yes When asked, does pt state using other controlled substances?: No If prescribed controlled substance>3 days was MAPS reviewed?: Yes If Rx opioid, was Start Talking consent form obtained?: Yes If opioid is for acute pain is fill amount 7 days or less?: No Was information provided regarding opioid addiction?: Yes Objective - Vital Signs Vital signs: Vital Signs Temp Pulse 87 03/28/18 12:21 Resp 18 03/28/18 12:21 BP 171/90 03/28/18 12:21 Pulse Ox Intake & Output 03/27/18 03/28/18 03/28/18 18:59 06:59 18:59 Weight 54.431 kg
== END | disposition home or self-care (01) ==
LOC: PNWHC3 12:00
PROVIDERS: ATTEND Specialist
DX: G89.29 Other chronic pain (principal); M96.1 Postlaminectomy syndrome, not elsewhere classified; Z98.1 Arthrodesis status; Z98.890 Other specified postprocedural states; Z79.891 Long term (current) use of opiate analgesic
CPT/HCPCS: 99211

== ENCOUNTER → 2018-05-23 | Outpatient (CLI) | payer MEDICAID ==
[2018-05-23 12:05] VITALS: BP 161/82; PULSE 87; RESP 18
--- NOTE | 2018-05-23 12:23 | P.PN ---
Subjective Progress Note Date: 05/23/18 This is a 53-year-old lady with history of failed back surgery syndrome and chronic lower back pain with occasional radiation to the lower extremities more to the right side than the left side. The patient denies any new neurologic changes since last time we saw her. She still takes [place] 10 mg 3 times a day. She works full-time. Today, pt denies new-onset weakness, bowel/bladder incontinence, or any other signs or symptoms of cauda equina syndrome. There are no signs of acute intoxication, and no indications of medication diversion or overuse. In addition to above, 13-point review of systems is also negative for chest pain, shortness of breath, changes in vision, changes in hearing, new onset weakness, abdominal pain, diarrhea, extreme fatigue, malaise, fever, skin changes, homicidal or suicidal ideation, or bowel or bladder incontinence. Vital Signs: Reviewed in EMR Gen: AAOx3, NAD HEENT: PERRLA,hearing grossly normal Pulm: Breathing is not labored Neck: supple, trachea midline Neuro exam of the lower extremities: Normal muscle strength bilaterally and symmetrically Straight leg raising test: Negative bilaterally Carlos's test: Negative on the right side Range of motion of the lumbar spine: Facet loading test: Tenderness in the paravertebral musculature: Positive on the right upper quadrant of the buttock. Neuro: CN II-XII grossly intact, Imaging: Reviewed in EMR/chart Assessment: Failed back surgery syndrome Opioid dependence Plan: 1. Explanation: Opioid and psychological risk scores were reviewed. Diagnoses, prognoses, and multiple treatment options including but not limited to physical therapy, interventional therapies, adjuvant medical therapies, narcotic medication therapies, and surgery were discussed with the patient and all questions were answered to the patient's satisfaction. 2. Opioid agreement: Signed with the patient and the patient is warned not to use opioids while driving or before driving and not to combine opioids with benzodiazepines or alcohol. 3. Counseling: The patient was counseled extensively on SMOKING CESSATION, BODY MASS INDEX, EXERCISE. Specifically, the patient was instructed regarding the importance of smoking cessation, obesity, and exercise in the context of both c hronic pain and overall health. 4. Procedures: None at this point 5. Consultations: None 6. Investigations: None 7. Medications: Continue [place] 10 mg 3 times a day 8. Disposition: Return to clinic in 8 weeks 9. Maps were reviewed and were appropriate. PQRS measures: 1-Patient's medications are documented in the chart. 2-Tobacco use is positive, counseling given 3-Patient has had a pneumococcal vaccine. 4-Advanced care planning discussed, patient unable to give 5-Opioid contract signed with the patient. 6-Pain positive, follow-up visit or procedure scheduled 7-Patient's blood pressure measured and documented above limits. The patient will follow up with his primary care physician. 8-Patient's weight was measured, and body mass index ABOVE the normal limits, and counseling was done. Patient instructed to follow up with PCP. 9-Patient WAS NOT identified as an unhealthy alcohol user. Controlled Substance Measures Is patient prescribed a controlled substance at discharge?: Yes When asked, does pt state using other controlled substances?: No If prescribed controlled substance>3 days was MAPS reviewed?: Yes If Rx opioid, was Start Talking consent form obtained?: Yes If opioid is for acute pain is fill amount 7 days or less?: No Was information provided regarding opioid addiction?: Yes Objective - Vital Signs Vital signs: Vital Signs Temp Pulse 87 05/23/18 11:59 Resp 18 05/23/18 11:59 BP 161/82 05/23/18 11:59 Pulse Ox 98 05/23/18 11:59 Intake & Output 05/22/18 05/23/18 05/23/18 18:59 06:59 18:59 Weight 53.524 kg
== END ==
LOC: PNWHC3 11:50
PROVIDERS: ATTEND Anesthesiology
DX: M96.1 Postlaminectomy syndrome, not elsewhere classified (principal); Z79.891 Long term (current) use of opiate analgesic; Z71.6 Tobacco abuse counseling
CPT/HCPCS: 99211

== ENCOUNTER → 2018-07-18 | Outpatient (CLI) | payer MEDICAID ==
[2018-07-18 13:46] VITALS: BP 142/101; PULSE 80; RESP 18
--- NOTE | 2018-07-18 14:55 | P.PAINPG ---
Subjective Progress Note Date: 07/18/18 This is a follow-up visit for this 53 years old female with a chronic history of severe low back pain patient had lumbar fusion surgery, and bilateral sacroiliitis, patient pain control between the interventional pain therapy and medication therapy, previously we have done a caudal epidural steroid injection with lysis of epidural adhesions, radiofrequency ablation of the sacroiliac joint, she is currently on Bouton 10/325 every 8 hours, she denies any fever or night sweats she denies any change in the bowel movement or urination and she denies any motor or sensory deficit Physical Examinations : 1-Constitutiona : Cooperative , not in acute distress . 2-HEENT : nech ; supple , no Lymphadenopathy , normal thyroid size . eyes : no ptosis , no icterus, no photophobia . ENT : normal of hearing , normal oropharynx , no Thrush . 3- Respiratory : Chest clear to auscultations Bilaterally , no wheezing , no Rhonchi . 4- Cardiovascular : regular rate and rhythem , S1 , S2 , no S3 , no S4. 5- Gastrointestinal : abdomen soft no tenderness , bowel sounds , no organomegally . 6- Genitourinary : Defferred . 7- neurologic : Cranial nerve II to XII intact , no focal neurological deffecit . 8-psychatric : alert , oriented X 3 , appropriate affect , intact judgment and insight . 9-Lymphatic : no Lymphadenopathy . 10- musculoskeltal : Lumber spine moter stegnth lower extremities ,thigh and legs 5/5 Right side , 5/5 Left side Assessment and Plan Plan: Assessment and plan= lumbar post laminectomy pain syndrome . Sacroiliitis. Prescription refill for Bouton 10/325 every 8 hours dispense 90 with 1 refill. MAPS reviewed and it was appropriate, patient could benefit from aquatic therapy Objective - Vital Signs Vital signs: Vital Signs Temp Pulse 80 07/18/18 13:37 Resp 18 07/18/18 13:37 BP 142/101 07/18/18 13:37 Pulse Ox 98 07/18/18 13:37 Intake & Output 07/17/18 07/18/18 07/18/18 18:59 06:59 18:59 Weight 54.431 kg PQRS Measure Charge Sheet Measure #130: Documentation of Current Meds in Medical Chart: Patient's m edications documented in chart Measure #226: Tobacco Use: Screen & Cessation Intervention: Pt screened for tobacco use AND intervention given Measure #111: Pneumonia Vaccination: Pneumococcal vaccine administered or previously received Measure #47: Advance Care Plan: Advance care planning discussed & documented, pt chose/unable to give Measure #412: Opioid Treatment Agreement: Documented signed opioid trtmnt agreemnt min once during opioid trtmnt Measure #408: Opioid Therapy Follow-up Evaluation: Patient had f/u eval minimum every 3 months during opioid therapy Measure #317: Preventitive Care & Scrn High Bld Press & F/U: Pre-hypertensive or hypertensive BP documented, pt will f/u with PCP Measure #128: Body Mass Index (BMI) Screening & Follow-up: BMI documented within normal parameters Measure #131: Pain Assessment & Follow-up: Follow-up scheduled Measure #431: Unhealthy Alcohol Use Preventative Care & Scrn: Patient not identified as an unhealthy alcohol user PQRS Narrative: Smoking Status Current every day smoker Narcotic Agreement Date Signed 01/31/18 Blood Pressure 142/101 Pain Intensity [Right Buttock] 7 Scale Used Numeric (1 - 10) Hx Alcohol Use (MH) No Home Medications: Ambulatory Orders ALPRAZolam [Xanax] 0.5 mg PO DAILY PRN 02/03/15 Butalb/APAP/Caff 50-325-40Mg [Fioricet 50-325-40] 1 tab PO DIRECTED PRN 02/03/15 Cetirizine HCl [Zyrtec] 10 mg PO DAILY 02/03/15 Dextroamphetamine/Amphetamine [Adderall] 30 mg PO BID PRN 02/03/15 Levothyroxine Sodium [Synthroid] 50 mcg PO DAILY 02/03/15 Albuterol Inhaler [Ventolin Hfa Inhaler] 1 - 2 puff INHALATION Q6HR PRN 03/20/16 Amitriptyline HCl [Elavil] 50 mg PO HS #30 tab 03/12/17 HYDROcodone/APAP 10-325MG [Bouton 10-325] 1 tab PO Q8HR PRN #90 tab 03/28/18 HYDROcodone/APAP 10-325MG [Bouton 10-325] 1 tab PO Q8HR PRN 30 Days #90 tab 03/28/18 Hydrochlorothiazide [Hydrodiuril] 1 tab PO DAILY 05/23/18 Controlled Substance Measures - Controlled Substance Measures Is patient prescribed a controlled substance at discharge?: Yes When asked, does pt state using other controlled substances?: No If prescribed controlled substance>3 days was MAPS reviewed?: Yes If Rx opioid, was Start Talking consent form obtained?: Yes If opioid is for acute pain is fill amount 7 days or less?: No Was information provided regarding opioid addiction?: Yes
== END ==
LOC: PNWHC3 13:03
PROVIDERS: ATTEND Specialist
DX: M96.1 Postlaminectomy syndrome, not elsewhere classified (principal); M46.1 Sacroiliitis, not elsewhere classified; Z79.891 Long term (current) use of opiate analgesic; F17.200 Nicotine dependence, unspecified, uncomplicated; Z79.899 Other long term (current) drug therapy
CPT/HCPCS: 99211

== ENCOUNTER → 2018-09-12 | Outpatient (CLI) | payer MEDICAID ==
[2018-09-12 15:07] VITALS: BP 161/89; PULSE 72; RESP 16
--- NOTE | 2018-09-13 12:20 | P.PAINPG ---
Subjective Progress Note Date: 09/12/18 This is a follow-up visit for this 53 years old female with a chronic history of severe low back pain status post lumbar fusion surgery, and bilateral sacroiliitis, patient pain has been well controlled with a combination of interventional pain therapy and medication therapy. Today she reports that the majority of her pain is located in her right buttock, right posterior thigh. She also reports right posterior thigh numbness as well as numbness in toes on the right side. Pain is worse with walking, sitting. Pain is better with medications, laying down, being in the water. At her last visit we had recommended aqua therapy, however due to work schedule she is unable to fill the prescription, but she has been doing aqua therapy on her own. She is currently on Sanders 10/325 when necessary every 8 hours, and takes one to 3 tablets a day. She is also taking Xanax 0.5-2 mg a day and has been working on weaning this down, so she is currently taking 0.5 mg a day on average. She has recently started a new job which doesn't involve as much lifting as her prior job. Review of systems is negative for chest pain, shortness of breath, new onset weakness, numbness/tingling, abdominal pain, malaise, fever, night sweats, chills, homicidal or suicidal ideation, or bowel or bladder incontinence. Physical exam: Vitals: Reviewed in EMR GENERAL: Well appearing, in no acute distress PSYCH: Mood and affect is appropriate. Awake, alert, and oriented SKIN: Skin color, texture, turgor normal, no rashes or lesions HEENT: Normocephalic, atraumatic. EOM intact CV: No pedal edema RESP: Respirations are unlabored, no audible wheezing GI: Abdomen non-distended MUSCULOSKELETAL: Bilateral lower extremity strength is normal and symmetric. No atrophy or tone abnormalities are noted. Lumbar spine: Straight leg raising in the sitting position is negative for radicular pain. No pain to palpation over the lumbar spine and paraspinous muscles. Negative for pain with facet loading and back extension/rotation. Normal range of motion without pain reproduction Buttocks: Tenderness to palpation over the right PSIS, Carlos's test is positive on the right Extremities: Peripheral joint ROM is full and pain free without obvious instability or laxity in all four extremities. No edema or skin discolorations noted. Gait: Gait is normal NEUR: Bilateral lower extremity coordination and muscle stretch reflexes are physiologic and symmetric. Negative clonus bilaterally. No loss of sensation is noted. Assessment and Plan Plan: Assessment and plan= lumbar post laminectomy pain syndrome . Right Sacroiliitis. Prescription refill for Sanders 10/325 every 8 hours dispense 90 with 1 refill. MAPS reviewed and it was appropriate We had a lengthy discussion regarding concurrent use of opioids and benzodiazepines and the risk of with this combination of medications. We agreed that she should be gradually weaned off her opioids and benzodiazepines. She is currently working on weaning her benzodiazepines so requested not to wean opioids at the same time. I informed her that at her next visit, we will attempt to wean her opioids. She was amenable to this plan. Objective - Vital Signs Vital signs: Vital Signs Temp Pulse 72 09/12/18 15:02 Resp 16 09/12/18 15:02 BP 161/89 09/12/18 15:02 Pulse Ox 99 09/12/18 15:02 PQRS Measure Charge Sheet Measure #130: Documentation of Current Meds in Medical Chart: Patient's medications documented in chart Measure #226: Tobacco Use: Screen & Cessation Intervention: Pt not a tobacco user Measure #111: Pneumonia Vaccination: Pneumococcal vaccine administered or previously received Measure #47: Advance Care Plan: Advance care planning discussed & documented, pt chose/unable to give Measure #412: Opioid Treatment Agreement: Documented signed opioid trtmnt agreemnt min once during opioid trtmnt Measure #408: Opioid Therapy Follow-up Evaluation: Patient had f/u eval minimum every 3 months during opioid therapy Measure #317: Preventitive Care & Scrn High Bld Press & F/U: Pre-hypertensive or hypertensive BP documented, pt will f/u with PCP Measure #128: Body Mass Index (BMI) Screening & Follow-up: BMI documented within normal parameters Measure #131: Pain Assessment & Follow-up: Pain positive & plan documented, Follow-up scheduled Measure #431: Unhealthy Alcohol Use Preventative Care & Scrn: Patient not eli ntified as an unhealthy alcohol user PQRS Narrative: Smoking Status Current every day smoker Narcotic Agreement Date Signed 01/31/18 Blood Pressure 161/89 Pain Intensity [Right Buttock] 6 Scale Used Numeric (1 - 10) Hx Alcohol Use (MH) No Home Medications: Ambulatory Orders ALPRAZolam [Xanax] 0.5 mg PO DAILY PRN 02/03/15 Butalb/APAP/Caff 50-325-40Mg [Fioricet 50-325-40] 1 tab PO DIRECTED PRN 02/03/15 Cetirizine HCl [Zyrtec] 10 mg PO DAILY 02/03/15 Dextroamphetamine/Amphetamine [Adderall] 30 mg PO BID PRN 02/03/15 Levothyroxine Sodium [Synthroid] 50 mcg PO DAILY 02/03/15 Albuterol Inhaler [Ventolin Hfa Inhaler] 1 - 2 puff INHALATION Q6HR PRN 03/20/16 Amitriptyline HCl [Elavil] 50 mg PO HS #30 tab 03/12/17 HYDROcodone/APAP 10-325MG [Sanders 10-325] 1 tab PO Q8HR PRN #90 tab 03/28/18 HYDROcodone/APAP 10-325MG [Sanders 10-325] 1 tab PO Q8HR PRN 30 Days #90 tab 03/28 Hydrochlorothiazide [Hydrodiuril] 1 tab PO DAILY 05/23/18 Controlled Substance Measures - Controlled Substance Measures Is patient prescribed a controlled substance at discharge?: Yes When asked, does pt state using other controlled substances?: No If prescribed controlled substance>3 days was MAPS reviewed?: Yes If Rx opioid, was Start Talking consent form obtained?: Yes If opioid is for acute pain is fill amount 7 days or less?: No Was information provided regarding opioid addiction?: Yes
== END | disposition home or self-care (01) ==
LOC: PNWHC3 14:46
PROVIDERS: ATTEND Anesthesiology
DX: M96.1 Postlaminectomy syndrome, not elsewhere classified (principal); M46.1 Sacroiliitis, not elsewhere classified; F17.200 Nicotine dependence, unspecified, uncomplicated; Z98.1 Arthrodesis status; Z79.891 Long term (current) use of opiate analgesic; Z79.899 Other long term (current) drug therapy
CPT/HCPCS: 99211

== ENCOUNTER → 2018-11-07 | Outpatient (CLI) | payer MEDICAID ==
[2018-11-07 15:15] VITALS: BP 160/88; PULSE 66; RESP 16
--- NOTE | 2018-11-08 11:55 | P.PAINPG ---
Subjective Progress Note Date: 11/07/18 This is a follow-up visit for this 53 years old female with a chronic history of severe low back pain patient had lumbar fusion surgery, and bilateral sacroiliitis, patient pain control between the interventional pain therapy and medication therapy, pain increased with any activity ,or sitting postion , previously we have done a caudal epidural steroid injection with lysis of epidural adhesions, radiofrequency ablation of the sacroiliac joint, she is currently on Biggs 10/325 every 8 hours, patient currently weaning off Xanax , she denies any fever or night sweats she denies any change in the bowel movement or urination and she denies any motor or sensory deficit Objective - Vital Signs Vital signs: Vital Signs Temp Pulse 66 11/07/18 15:10 Resp 16 11/07/18 15:10 BP 160/88 11/07/18 15:10 Pulse Ox 96 11/07/18 15:10 Intake & Output 11/07/18 11/08/18 11/08/18 18:59 06:59 18:59 Weight 54.431 kg - Exam Physical Examinations : -Constitutiona : Cooperative , not in acute distress . -HEENT : nech : supple , no Lymphadenopathy , normal thyroid size . eyes : no ptosis , no icterus, no photophobia . 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 chronic and current use of high-risk medication (opioids) Patient denies any side effects of the current pain medication and the current treatment/medication helping the patient to do activity of daily living , Diagnoses, prognosis, treatment options, including but not limited to physical therapy, medication management, interventional therapies, and surgery, were discussed with the patient All the questions answered The narcotic consent was signed and patient agreed and understood the side effects and complications of opioid treatment. Patient signed the narcotic agreement, and was orally counseled, not to overuse, not to abuse, not to Divert , not tp sell pain medication, and to take it as prescribed only, Patient was counseled not to drive or operate heavy equipment while using narcotic medication, and advised not to use alcohol or any Illicit drugs while using the narcotis. understanding that lack of compliance with any of the above instructions, will likely to cause discharge from, the pain service, not to renew his narcotic prescriptions MAPS Reviwed and it was apropriate . Medication managements= patient will be given prescription refills for Biggs 10/325 every 8 hours dispense 90 with 1 refill. Follow-up in 2 months , Time with Patient: Less than 30 PQRS Measure Charge Sheet Measure #130: Documentation of Current Meds in Medical Chart: Patient's medications documented in chart Measure #226: Tobacco Use: Screen & Cessation Intervention: Pt screened for tobacco use AND intervention given Measure #111: Pneumonia Vaccination: Pneumococcal vaccine administered or previously received Measure #47: Advance Care Plan: Advance care planning discussed & documented, pt chose/unable to give Measure #412: Opioid Treatment Agreement: Documented signed opioid trtmnt agreemnt min once during opioid trtmnt Measure #408: Opioid Therapy Follow-up Evaluation: Patient had f/u eval minimum every 3 months during opioid therapy Measure #317: Preventitive Care & Scrn High Bld Press & F/U: Pre-hypertensive or hypertensive BP documented, pt will f/u with PCP Measure #128: Body Mass Index (BMI) Screening & Follow-up: BMI documented within normal parameters Measure #131: Pain Assessment & Follow-up: Pain positive & plan documented, Follow-up scheduled Measure #431: Unhealthy Alcohol Use Preventative Care & Scrn: Patient not identified as an unhealthy alcohol user PQRS Narrative: Smoking Status Current every day smoker Narcotic Agreement Date Signed 01/31/18 Blood Pressure 160/88 Pain Intensity [Right Lower 7 Back] Scale Used Numeric (1 - 10) Hx Alcohol Use (MH) No Home Medications: Ambulatory Orders ALPRAZolam [Xanax] 0.5 mg PO DAILY PRN 02/03/15 Butalb/APAP/Caff 50-325-40Mg [Fioricet 50-325-40] 1 tab PO DIRECTED PRN 02/03/15 Cetirizine HCl [Zyrtec] 10 mg PO DAILY 02/03/15 Dextroamphetamine/Amphetamine [Adderall] 30 mg PO BID PRN 02/03/15 Levothyroxine Sodium [Synthroid] 50 mcg PO DAILY 02/03/15 Albuterol Inhaler [Ventolin Hfa Inhaler] 1 - 2 puff INHALATION Q6HR PRN 03/20/16 Amitriptyline HCl [Elavil] 50 mg PO HS #30 tab 03/12/17 HYDROcodone/APAP 10-325MG [Biggs 10-325] 1 tab PO Q8HR PRN #90 tab 03/28/18 HYDROcodone/APAP 10-325MG [Biggs 10-325] 1 tab PO Q8HR PRN 30 Days #90 tab 03/28/18 Hydrochlorothiazide [Hydrodiuril] 1 tab PO DAILY 05/23/18 Controlled Substance Measures - Controlled Substance Measures Is patient prescribed a controlled substance at discharge?: Yes When asked, does pt state using other controlled substances?: No If prescribed controlled substance>3 days was MAPS reviewed?: Yes If Rx opioid, was Start Talking consent form obtained?: Yes If opioid is for acute pain is fill amount 7 days or less?: No Was information provided regarding opioid addiction?: Yes
== END | disposition home or self-care (01) ==
LOC: PNWHC3 14:09
PROVIDERS: ATTEND Specialist
DX: G89.29 Other chronic pain (principal); M96.1 Postlaminectomy syndrome, not elsewhere classified; M46.1 Sacroiliitis, not elsewhere classified; F17.200 Nicotine dependence, unspecified, uncomplicated; Z98.1 Arthrodesis status; Z98.890 Other specified postprocedural states; Z79.891 Long term (current) use of opiate analgesic; Z79.899 Other long term (current) drug therapy
CPT/HCPCS: 99211

== ENCOUNTER → 2019-01-02 | Outpatient (CLI) | payer MEDICAID ==
[2019-01-02 13:57] VITALS: BP 154/95; PULSE 82; RESP 18
--- NOTE | 2019-01-03 08:38 | P.PAINPG ---
Subjective Progress Note Date: 01/02/19 This is a follow-up visit for this 53 year old female with a chronic history of severe low back pain patient had lumbar fusion surgery, and bilateral sacroiliitis, patient's pain has been well controlled by interventional pain therapy and medication therapy. Currently, her primary source of pain is her right low back. She rates this as 7/10. It occasionally radiates to right posterior thigh, not past the knee. Pain increased with any activity ,or sitting position, previously we have done radiofrequency ablation of the sacroiliac joint and she is interested in having this redone. She is currently on Thornton 10/325 every 8 hours, patient currently weaning off Xanax with her primary care physician, she denies any fever or night sweats she denies any change in the bowel movement or urination and she denies any motor or sensory deficit. Of note, she quit smoking 3 weeks ago Review of systems is negative for chest pain, shortness of breath, new onset weakness, numbness/tingling, abdominal pain, malaise, fever, night sweats, chills, homicidal or suicidal ideation, or bowel or bladder incontinence. Objective Physical exam: Vitals: Reviewed in EMR GENERAL: Well appearing, in no acute distress PSYCH: Mood and affect is appropriate. Awake, alert, and oriented SKIN: Skin color, texture, turgor normal, no rashes or lesions HEENT: Normocephalic, atraumatic. EOM intact CV: No pedal edema RESP: Respirations are unlabored, no audible wheezing GI: Abdomen non-distended MUSCULOSKELETAL: Bilateral lower extremity strength is normal and symmetric. No atrophy or tone abnormalities are noted. Lumbar spine: Straight leg raising in the sitting position is negative for rad icular pain. Tenderness to palpation over the lumbar spine and paraspinous muscles. Buttocks: Tenderness to palpation over the right PSIS, Carlos's test is positive on the right, Gaenslen's test positive on the right, [place]hen's test positive on the right Extremities: Peripheral joint ROM is full and pain free without obvious instability or laxity in all four extremities. No edema or skin discolorations noted. Gait: Gait is normal NEUR: Bilateral lower extremity coordination and muscle stretch reflexes are physiologic and symmetric. Negative clonus bilaterally. No loss of sensation is noted. 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 chronic and current use of high-risk medication (opioids) Patient denies any side effects of the current pain medication and the current treatment/medication helping the patient to do activity of daily living , Diagnoses, prognosis, treatment options, including but not limited to physical therapy, medication management, interventional therapies, and surgery, were discussed with the patient All the questions answered The narcotic consent was signed and patient agreed and understood the side effects and complications of opioid treatment MAPS Reviewed and it was appropriate . Of note, she filled a Xanax prescription in November. The patient was extensively counseled on the side effects of combined opioid and benzodiazepine use. She is currently weaning her Xanax with her primary care physician. I informed her that at her next visit, she should be completely weaned off the Xanax. If this is not possible, we will gradually wean her opioids. She expressed understanding. UDS order today Medication managements= patient will be given prescription refills for Thornton 10/325 every 8 hours dispense 90 with 1 refill. Procedures: We will schedule right-sided radiofrequency ablation of the L5 dorsal ramus and S1, S2, S3 lateral branches, since she has obtained significant benefit from this in the past. Follow-up for above-mentioned procedure and in 2 months for medication management Objective - Vital Signs Vital signs: Intake & Output 01/01/19 01/02/19 01/02/19 18:59 06:59 18:59 Weight 54.431 kg PQRS Measure Charge Sheet Measure #130: Documentation of Current Meds in Medical Chart: Patient's medications documented in chart Measure #226: Tobacco Use: Screen & Cessation Intervention: Pt not a tobacco user Measure #111: Pneumonia Vaccination: Pneumococcal vaccine administered or previously received Measure #47: Advance Care Plan: Advance care planning discussed & documented, pt chose/unable to give Measure #412: Opioid Treatment Agreement: Documented signed opioid trtmnt agreemnt min once during opioid trtmnt Measure #408: Opioid Therapy Follow-up Evaluation: Patient had f/u eval minimum every 3 months during opioid therapy Measure #317: Preventitive Care & Scrn High Bld Press & F/U: Pre-hypertensive or hypertensive BP documented, pt will f/u with PCP Measure #128: Body Mass Index (BMI) Screening & Follow-up: BMI documented within normal parameters Measure #131: Pain Assessment & Follow-up: Pain positive & plan documented, Follow-up scheduled Measure #431: Unhealthy Alcohol Use Preventative Care & Scrn: Patient not identified as an unhealthy alcohol user PQRS Narrative: Smoking Status Current every day smoker Narcotic Agreement Date Signed 01/31/18 Scale Used Numeric (1 - 10) Hx Alcohol Use (MH) No Home Medications: Ambulatory Orders ALPRAZolam [Xanax] 0.5 mg PO DAILY PRN 02/03/15 Butalb/APAP/Caff 50-325-40Mg [Fioricet 50-325-40] 1 tab PO DIRECTED PRN 02/03/15 Cetirizine HCl [Zyrtec] 10 mg PO DAILY 02/03/15 Dextroamphetamine/Amphetamine [Adderall] 30 mg PO BID PRN 02/03/15 Levothyroxine Sodium [Synthroid] 50 mcg PO DAILY 02/03/15 Albuterol Inhaler [Ventolin Hfa Inhaler] 1 - 2 puff INHALATION Q6HR PRN 03/20/16 Amitriptyline HCl [Elavil] 50 mg PO HS #30 tab 03/12/17 HYDROcodone/APAP 10-325MG [Thornton 10-325] 1 tab PO Q8HR PRN #90 tab 03/28/18 Hydrochlorothiazide [Hydrodiuril] 50 mg PO DAILY 05/23/18 Controlled Substance Measures - Controlled Substance Measures Is patient prescribed a controlled substance at discharge?: Yes When asked, does pt state using other controlled substances?: No If prescribed controlled substance>3 days was MAPS reviewed?: Yes If Rx opioid, was Start Talking consent form obtained?: Yes If opioid is for acute pain is fill amount 7 days or less?: No Was information provided regarding opioid addiction?: Yes
== END | disposition home or self-care (01) ==
LOC: PNWHC3 13:10
PROVIDERS: ATTEND Anesthesiology
DX: M96.1 Postlaminectomy syndrome, not elsewhere classified (principal); G89.29 Other chronic pain; F17.200 Nicotine dependence, unspecified, uncomplicated; Z98.1 Arthrodesis status; Z79.890 Hormone replacement therapy; Z79.899 Other long term (current) drug therapy
CPT/HCPCS: 80307; 99211; G0482

== ENCOUNTER 2019-01-30 07:06 | Day surgery (SDC) | payer MEDICAID ==
[2019-01-28 15:33] VITALS: BMI 21.4
[~2019-01-30 07:06] MED LIST changes: +LACTATED RINGERS 1,000 ML IV SCH; -SODIUM CHLORIDE 0.9% 500 ML 500 ML IV ONE; -SODIUM CHLORIDE 0.9% 500 ML 500 ML IV SCH
[2019-01-30] MEDS ORDERED: LIDOCAINE 1% 20 ML VIAL (10MG/ML) FOR IV START INTRADERMA ONE (08:00)
[2019-01-30] MEDS ORDERED: IV FLUID CONTINUATION 1,000 ML IV ONE ×2 (09:36)
[2019-01-30 09:41] VITALS: RESP 16
[2019-01-30] MEDS ORDERED: KETOROLAC 30 MG/ML 1 ML VIAL IVP ONE (09:46)
--- NOTE | 2019-01-30 10:06 | FL ---
EXAMINATION TYPE: FL guided pain mgmt statistic DATE OF EXAM: 01/30/2019 HISTORY: Flouroscopy time 9 seconds of fluoroscopy provided. IMPRESSION: 1. Fluoroscopy time.
--- NOTE | 2019-01-30 10:09 | P.PCN ---
Date of Procedure: 01/30/19 Procedure(s) Performed: Bipolar Radiofrequency Ablation of Lateral Branches of S1 and S2, S3 ATTENDING PHYSICIAN: Melva Akbar MD PREOPERATIVE DIAGNOSIS: Right Sacroiliac Joint Pain/ sacroilitis POSTOPERATIVE DIAGNOSIS: same PROCEDURE PERFORMED: Bipolar Radiofrequency Ablation of Lateral Branches of S1, S2 and S3 SIDE: Right IV SEDATION moderate sedation with Versed and fentanyl , sedation time 40 minutes ESTIMATED BLOOD LOSS: None FLUOROSCOPY WAS USED. Images were saved in the radiology portion of the chart. INDICATIONS FOR PROCEDURE: Patient has a clinical picture consistent with right sacroiliac joint dysfunction and has responded well to sacral radiofrequency ablation in the ct st. PROCEDURE AND FINDINGS: The patient was greeted in the pre procedure holding area. The risk, benefits and alternatives to the procedure were again reviewed with the patient and written informed consent was placed in the chart. Prior to the procedure a time out was completed, verifying correct patient, procedure, site, positioning, and implants and/or special equipment. An IV line was placed. The patient was taken to the procedure room and positioned prone on the fluoroscopy table. Routine monitors were applied including EKG leads, blood pressure cuff, and pulse oximetry. The skin was prepped with chlorhexidine and draped in the usual sterile fashion. A fluoroscopic AP view was used to identify the sacral ala and the right SI joint with the associated S1-S3 foramens medial to the SI joint line. A marker was used to steve the sacral ala and the lateral aspects of the S1-S3 foramen. Aguilar were made 1 cm apart. Then overlying skin and subcutaneous tissues were anesthetized using a 25-gauge 1-1/2-inch needle with 1% preservative free lidocaine for a total volume of 10 mls. Under AP and lateral fluorscopic views, 18 gauge 100 mm [employer] Bipolar RF needles with a 10 mm active tip were inserted at the lateral aspects of the S1, S2 and S3 foramens and advanced until it touched os. Confirmation of position was then made with a lateral fluoroscopic view to ensure that the tips were posterior to the posterior plate of the sacrum. Motor stimulation at 2 Hz and up to 2V was conducted between sequential probes. There was no observable motor movement in the lower extremities and the patient confirmed this by self-report. After satisfactory motor testing was completed at each level, approximately 0.5 mL of 4% Lidocaine was injected to anesthetize the radiofrequency ablation target. Subsequently, bipolar radiofrequency ablation was carried out at each of the aforementioned locations with a probe temperature set to 90C for 150 seconds. A total of 7 bipolar radiofrequency lesions was done. Following lesioning the needles were removed. The needle insertion site was dressed appropriately. The patient was taken to the recovery room where they were monitored for a brief period of time. They tolerated the procedure well and were discharged home in stable condition with post procedural instructions. Comments: L5 dorsal ramus was not done as the patient has lumbar hardware at L5- S1 Follow-up will be in clinic in 4 weeks. COMPLICATIONS: None
[2019-01-30 10:24] VITALS: BP 122/71; PULSE 70
== END 2019-01-30 10:25 | disposition home or self-care (01) ==
LOC: ORPAIN 07:06
PROVIDERS: ATTEND Anesthesiology
DX: G89.29 Other chronic pain (principal); M46.1 Sacroiliitis, not elsewhere classified; M53.3 Sacrococcygeal disorders, not elsewhere classified; Z87.891 Personal history of nicotine dependence; Z79.890 Hormone replacement therapy; Z79.891 Long term (current) use of opiate analgesic; Z79.899 Other long term (current) drug therapy
CPT/HCPCS: 64640; J2250; J3010; J1885; 64635; 99152; 99153

== ENCOUNTER → 2019-03-06 | Outpatient (CLI) | payer MEDICAID ==
[2019-03-06 13:29] VITALS: BP 137/86; PULSE 82; RESP 18
--- NOTE | 2019-03-12 09:03 | P.PAINPG ---
Subjective Progress Note Date: 03/06/19 This is a follow-up visit for this 53 year old female with a chronic history of severe low back pain patient had lumbar fusion surgery, and bilateral sacroiliitis, patient's pain has been well controlled by interventional pain therapy and medication therapy. Most recently, she has undergone right-sided radiofrequency ablation of the sacroiliac joint on 01/30/2019 with good benefit. She returns today for follow-up will stop. She is currently on [place] 10/325 every 8 hours, she was supposed to wean off Xanax with her primary care physician, which was discussed extensively at our last visit, but unfortunately, she has not been able to do so. We discussed weaning of opioids and she is amenable to this plan. She actually tried to reduce her dose by half, but had withdrawal symptoms in the form of nausea, vomiting, diarrhea, flu like symptoms. She increased her dose back to usual and symptoms resolved. She denies any fever or night sweats she denies any change in bowel movement or urination and she denies any motor or sensory deficit. Of note, she quit smoking 2 months ago. She also got a recent promotion at work and is excited about this. Review of systems is negative for chest pain, shortness of breath, new onset weakness, numbness/tingling, abdominal pain, malaise, fever, night sweats, chills, homicidal or suicidal ideation, or bowel or bladder incontinence. Objective Physical exam: Vitals: Reviewed in EMR GENERAL: Well appearing, in no acute distress PSYCH: Mood and affect is appropriate. Awake, alert, and oriented SKIN: Skin color, texture, turgor normal, no rashes or lesions HEENT: Normocephalic, atraumatic. EOM intact CV: No pedal edema RESP: Respirations are unlabored, no audible wheezing GI: Abdomen non-distended MUSCULOSKELETAL: Bilateral lower extremity strength is normal and symmetric. No atrophy or tone abnormalities are noted. Lumbar spine: Straight leg raising in the sitting position is negative for radicular pain. Tenderness to palpation over the lumbar spine and paraspinous muscles. Buttocks: Tenderness to palpation over the right PSIS, SI joint maneuvers negative Extremities: Peripheral joint ROM is full and pain free without obvious instability or laxity in all four extremities. No edema or skin discolorations noted. Gait: Gait is normal NEUR: Bilateral lower extremity coordination and muscle stretch reflexes are physiologic and symmetric. Negative clonus bilaterally. No loss of sensation is noted. 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 chronic and current use of high-risk medication (opioids) Patient denies any side effects of the current pain medication and the current treatment/medication helping the patient to do activity of daily living , Diagnoses, prognosis, treatment options, including but not limited to physical therapy, medication management, interventional therapies, and surgery, were discussed with the patient All the questions answered The narcotic consent was signed and patient agreed and understood the side effects and complications of opioid treatment MAPS Reviewed and it was appropriate . Of note, she filled a Xanax prescription in [facility]. The patient was extensively counseled on the side effects of combined opioid and benzodiazepine use. Since she has been unable to wean off Xanax, we will gradually wean her opioids. She expressed understanding and is amenable to this plan. 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 Medication managements= patient will be given prescription refills for [place] 7.5/325 every 8 hours dispense 90 followed by [place] 5/325- dispense 90. At next visit, she should get prescriptions for norco 5/325- 60 followed by 30; and no further refills. We discussed this extensively and she is amenable to this plan. Procedures: None currently, she reports good benefit from right-sided radiofrequency ablation of the SI joint Follow-up in 2 months for medication management PQRS Measure Charge Sheet Measure #130: Documentation of Current Meds in Medical Chart: Patient's medications documented in chart Measure #226: Tobacco Use: Screen & Cessation Intervention: Pt not a tobacco user Measure #111: Pneumonia Vaccination: Pneumococcal vaccine administered or previously received Measure #47: Advance Care Plan: Advance care planning discussed & documented, pt chose/unable to give Measure #412: Opioid Treatment Agreement: Documented signed opioid trtmnt a greemnt min once during opioid trtmnt Measure #408: Opioid Therapy Follow-up Evaluation: Patient had f/u eval minimum every 3 months during opioid therapy Measure #317: Preventitive Care & Scrn High Bld Press & F/U: Pre-hypertensive or hypertensive BP documented, pt will f/u with PCP Measure #128: Body Mass Index (BMI) Screening & Follow-up: BMI documented within normal parameters Measure #131: Pain Assessment & Follow-up: Pain positive & plan documented, Follow-up scheduled Measure #431: Unhealthy Alcohol Use Preventative Care & Scrn: Patient not identified as an unhealthy alcohol user PQRS Measure Charge Sheet PQRS Narrative: Smoking Status Former smoker Narcotic Agreement Date Signed 01/02/19 Hx Alcohol Use (MH) No Home Medications: Ambulatory Orders ALPRAZolam [Xanax] 0.5 mg PO DAILY PRN 02/03/15 Butalb/APAP/Caff 50-325-40Mg [Fioricet 50-325-40] 1 tab PO DIRECTED PRN 02/03/15 Cetirizine HCl [Zyrtec] 10 mg PO DAILY PRN 02/03/15 Dextroamphetamine/Amphetamine [Adderall] 30 mg PO BID PRN 02/03/15 Levothyroxine Sodium [Synthroid] 50 mcg PO DAILY 02/03/15 Albuterol Inhaler [Ventolin Hfa Inhaler] 1 - 2 puff INHALATION Q6HR PRN 03/20/16 Amitriptyline HCl [Elavil] 50 mg PO HS #30 tab 03/12/17 Hydrochlorothiazide [Hydrodiuril] 50 mg PO DAILY 05/23/18 HYDROcodone/APAP 7.5-325MG [[place] 7.5-325] 1 tab PO Q8HR PRN 03/06/19 Controlled Substance Measures - Controlled Substance Measures Is patient prescribed a controlled substance at discharge?: Yes When asked, does pt state using other controlled substances?: No If prescribed controlled substance>3 days was MAPS reviewed?: Yes If Rx opioid, was Start Talking consent form obtained?: Yes If opioid is for acute pain is fill amount 7 days or less?: No Was information provided regarding opioid addiction?: Yes
== END | disposition home or self-care (01) ==
LOC: PNWHC3 12:50
PROVIDERS: ATTEND Anesthesiology
DX: G89.29 Other chronic pain (principal); M96.1 Postlaminectomy syndrome, not elsewhere classified; M46.1 Sacroiliitis, not elsewhere classified; Z87.891 Personal history of nicotine dependence; Z79.891 Long term (current) use of opiate analgesic; Z79.890 Hormone replacement therapy; Z79.899 Other long term (current) drug therapy
CPT/HCPCS: 99211

== ENCOUNTER → 2019-05-01 | Outpatient (CLI) | payer MEDICAID ==
[2019-05-01 13:53] VITALS: BP 125/80; PULSE 75; RESP 16
--- NOTE | 2019-05-01 14:14 | P.PAINPG ---
Subjective Progress Note Date: 05/01/19 This is a follow-up visit for this 53 year old female with a chronic history of severe low back pain patient had lumbar fusion surgery, and bilateral sacroiliitis, patient's pain has been well controlled by interventional pain therapy and medication therapy. Most recently, she has undergone right-sided r adiofrequency ablation of the sacroiliac joint on 01/30/2019 with good benefit She is currently on [place] 7.5/325 every 8 hours, We discussed weaning of opioids and she is amenable to this plan. She denies any fever or night sweats she denies any change in bowel movement or urination and she denies any motor or sensory deficit. Of note, Review of systems is negative for chest pain, shortness of breath, new onset weakness, numbness/tingling, abdominal pain, malaise, fever, night sweats, chills, homicidal or suicidal ideation, or bowel or bladder incontinence. Objective - Vital Signs Vital signs: Vital Signs Temp Pulse 75 05/01/19 13:46 Resp 16 05/01/19 13:46 BP 125/80 05/01/19 13:46 Pulse Ox 100 05/01/19 13:46 Intake & Output 04/30/19 05/01/19 05/01/19 18:59 06:59 18:59 Weight 56.699 kg - Exam Physical Examinations : -Constitutiona : Cooperative , not in acute distress . -HEENT : nech : supple , no Lymphadenopathy , normal thyroid size . : eyes : no ptosis , no icterus, no photophobia . - neurologic : Cranial nerve II to XII intact , no focal neurological deffecit . -psychatric : alert , oriented X 3 , appropriate affect , intact judgment and insight . -Lymphatic : no Lymphadenopathy . - musculoskeltal : Lumber spine moter stegnth lower extremities ,thigh and legs 5/5 Right side , 5/5 Left side Assessment and Plan Plan: Assessment and plan= chronic low back pain secondary to lumbar postlaminectomy pain syndrome, bilateral sacroiliitis Pain improved after RFA of the right sacroiliac joint chronic and current use of high-risk medication (opioids) Patient denies any side effects of the current pain medication and the current treatment/medication helping the patient to do activity of daily living , Diagnoses, prognosis, treatment options, including but not limited to physical therapy, medication management, interventional therapies, and surgery, were discussed with the patient All the questions answered The narcotic consent was signed and patient agreed and understood the side effects and complications of opioid treatment. Patient signed the narcotic agreement, and was orally counseled, not to overuse, not to abuse, not to Divert , not tp sell pain medication, and to take it as prescribed only, Patient was counseled not to drive or operate heavy equipment while using narcotic medication, and advised not to use alcohol or any Illicit drugs while using the narcotis. understanding that lack of compliance with any of the above instructions, will likely to cause discharge from, the pain service, not to renew his narcotic prescriptions MAPS Reviwed and it was apropriate . Medication managements= she'll was using [place] 7.5/325 when necessary, and I explained to the patient because the pain improved significantly and currently her pain level around 2/10 Patient given prescription for Mobic 7.5 mg twice a day when necessary dispense 60 with 1 refill, and she will follow up in the pain clinic when necessary , PQRS Measure Charge Sheet Measure #130: Documentation of Current Meds in Medical Chart: Patient's m edications documented in chart Measure #226: Tobacco Use: Screen & Cessation Intervention: Pt screened for tobacco use AND intervention given Measure #111: Pneumonia Vaccination: Pneumococcal vaccine administered or previously received Measure #47: Advance Care Plan: Advance care planning discussed & documented, pt chose/unable to give Measure #412: Opioid Treatment Agreement: Documented signed opioid trtmnt agreemnt min once during opioid trtmnt Measure #408: Opioid Therapy Follow-up Evaluation: Patient had NO f/u eval minimum every 3 months during opioid therapy Measure #317: Preventitive Care & Scrn High Bld Press & F/U: Normal blood press ure, f/u not required Measure #128: Body Mass Index (BMI) Screening & Follow-up: BMI documented within normal parameters Measure #131: Pain Assessment & Follow-up: Pain positive & plan documented, Follow-up PRN Measure #431: Unhealthy Alcohol Use Preventative Care & Scrn: Patient not identified as an unhealthy alcohol user PQRS Narrative: Smoking Status Former smoker Narcotic Agreement Date Signed 01/02/19 Blood Pressure 125/80 Pain Intensity [Right Lower 5 Back] Scale Used Numeric (1 - 10) Hx Alcohol Use (MH) No Home Medications: Ambulatory Orders ALPRAZolam [Xanax] 0.5 mg PO DAILY PRN 02/03/15 Butalb/APAP/Caff 50-325-40Mg [Fioricet 50-325-40] 1 tab PO DIRECTED PRN 02/03/15 Cetirizine HCl [Zyrtec] 10 mg PO DAILY PRN 02/03/15 Dextroamphetamine/Amphetamine [Adderall] 30 mg PO BID PRN 02/03/15 Levothyroxine Sodium [Synthroid] 50 mcg PO DAILY 02/03/15 Albuterol Inhaler [Ventolin Hfa Inhaler] 1 - 2 puff INHALATION Q6HR PRN 03/20/16 Amitriptyline HCl [Elavil] 50 mg PO HS #30 tab 03/12/17 Hydrochlorothiazide [Hydrodiuril] 50 mg PO DAILY 05/23/18 HYDROcodone/APAP 7.5-325MG [[place] 7.5-325] 1 tab PO Q8HR PRN 03/06/19 Controlled Substance Measures - Controlled Substance Measures Is patient prescribed a controlled substance at discharge?: No
== END | disposition home or self-care (01) ==
LOC: PNWHC3 13:29
PROVIDERS: ATTEND Specialist
DX: G89.29 Other chronic pain (principal); M96.1 Postlaminectomy syndrome, not elsewhere classified; M46.1 Sacroiliitis, not elsewhere classified; Z98.890 Other specified postprocedural states; Z87.891 Personal history of nicotine dependence; Z79.891 Long term (current) use of opiate analgesic; Z79.890 Hormone replacement therapy; Z79.899 Other long term (current) drug therapy
CPT/HCPCS: 99211